=== PATIENT | female | born 1950 | race Caucasian/White ===

== ENCOUNTER → 2017-12-16 10:35 | Outpatient (CLI) | payer MEDICARE, OTHER, SELFPAY ==
[2017-12-16 11:12] LABS: Chloride 101 mmol/L (98-107); HEMOLYSIS < 15 (0-50); Potassium 4.4 mmol/L (3.4-5.1); Sodium 142 mmol/L (137-145)
[2017-12-16 11:38] LABS: BUN Creatinine Ratio 23.3 (6-22); Blood Urea Nitrogen 14 mg/dL (7-17); Calcium 9.5 mg/dL (8.4-10.2); Carbon Dioxide 29 mmol/L (22-32); Cholesterol 117 mg/dL (140-199); Estimated Glomerular Filt Rate > 60.0 mL/min (>60); Glucose 98 mg/dL (80-110); HDL Cholesterol 37 mg/dL (40-60); LDL Cholesterol Calculated 59 mg/dL (<100); Triglycerides 106 mg/dL (35-150)
== END ==
PROVIDERS: PCP Physician Assistant; Visit Provider Internal Medicine Interventional Cardiology
DX: I25.10 Atherosclerotic heart disease of native coronary artery without angina pectoris (principal)
CPT/HCPCS: 36415; 80048; 80061

== ENCOUNTER → 2018-05-13 14:00 | Outpatient (CLI) | payer MEDICARE, OTHER, SELFPAY | PROVIDERS: PCP Physician Assistant | DX: Z23 Encounter for immunization (principal) | CPT/HCPCS: 90471; 90686 ==

== ENCOUNTER 2018-09-01 07:33 | Day surgery (SDC) | payer MEDICARE, OTHER, SELFPAY ==
--- NOTE | 2018-09-01 | PATH.2_ITS ---
[facility] Accession Number: [id number] . 01 Material submitted: . PART A: POLYP CECUM PART B: POLYP ASCENDING COLON PART C: POLYPS AT 50CM X2 PART D: POLYPS AT 30CM X5 PART E: POLYPS AT 10CM X3 . 02 Diagnosis: A. Cecum, Polyp, Biopsy: Benign lymphoid aggregate. Additional levels were examined. . B. Ascending Colon, Polyp, Biopsy: Tubular adenoma. . C. Colon, Polyps at 50 cm x2, Biopsies: Tubular adenoma in two of four fragments. . D. Colon, Polyps at 30 cm x5, Biopsies: Hyperplastic polyps. . E. Colon, Polyps at 10 cm x3, Biopsies: Hyperplastic polyps. [facility]/09/05/2018 . 02 Electronically signed: . Vangie Rivera MD, Pathologist NPI- [id number] . 01 Gross description: . Received five formalin-filled containers, each labeled with the patient's name: . A. In a container labeled polyp cecum, are two 0.3-0.6 cm portions of tissue, entirely submitted in cassette A. B. In a container labeled polyp ascending colon, are multiple fragments of tissue which range in size from 0.1 cm to 0.3 cm, entirely submitted in cassette B. C. In a container labeled polyp at 50 cm x2, are two 0.3-0.5 cm portions of tissue, entirely submitted in cassette C. D. In a container labeled polyp at 30 cm x5, are multiple less than 0.1 cm to 0.4 cm portions of tissue, which are filtered, wrapped, and entirely submitted in cassette D. E. In a container labeled polyps at 10 cm x3, are four 0.2-0.4 cm portions of tissue, entirely submitted in cassette E. ([id number]) /FRR . 02 Pathologist provided ICD-10: D12.2, D12.6 . 02 CPT . 038443, [id number], 364814, [id number], [id number] Performed at: 01 [facility] [address] [id number] MD aJni Cifuentes MD Phone: [phone] Performed at: 02 [facility] [address] [place] [address] [id number] MD Vangie Rivera MD Phone: [phone]
[2018-09-01 08:03] VITALS: BMI 33.0
[2018-09-01 08:09] VITALS: BP 132/66; PULSE 54; RESP 16; TEMP 36.3; O2SAT 97
[2018-09-01] MEDS: SODIUM CHLORIDE 0.9% 1,000 ML 200 ML IV (08:21)
--- NOTE | 2018-09-01 09:37 | PM.HP.1 ---
History of Present Illness Date Patient Seen: 09/01/18 Time Patient Seen: 09:37 Chief complaint: [id number] SCREENING COLONOSCOPY Narrative: Patient is woman here for a screening colonoscopy. Her last exam was over 10 years ago. She is not having any rectal bleeding and she has no family history of colon cancer Patient History Medical History S/P right hip fracture (Resolved) Surgical History H/O heart artery stent (Resolved) History of (Resolved) History of bilateral cataract extraction (Resolved) Hx of appendectomy (Resolved) Previous back surgery (Resolved) Social History household members: significant other Family & Social History Social History: household members significant other Meds Home Medications Medication Instructions Recorded Confirmed Type nitroglycerin 0.4 mg SUBLINGUAL Q5-15M #0 09/12/09 09/01/18 History atenolol 25 mg PO HS #0 08/07/11 09/01/18 History celecoxib [Celebrex] 200 mg PO PM #0 08/07/11 09/01/18 History atorvastatin [Lipitor] 20 mg PO HS #0 10/27/11 09/01/18 History amlodipine 10 mg PO DAILY 09/01/18 09/01/18 History cholecalciferol (vitamin D3) 2,500 unit PO DAILY 09/01/18 09/01/18 History [Vitamin D3] lorazepam 1 mg PO BEDTIME 09/01/18 09/01/18 History oxycodone 5 - 10 mg PO Q3HP PRN 09/01/18 09/01/18 History Allergies Allergy/AdvReac Type Severity Reaction Status Date / Time ALISTAIR Inhibitors Allergy Severe ANGIOEDEMA Verified 09/01/18 07:57 [ALISTAIR INHIBITORS] lisinopril [LISINOPRIL] Allergy Severe ANGIOEDEMA Verified 09/01/18 07:57 latex [LATEX] Allergy Mild less Verified 09/01/18 07:57 irritation from non-latex on mucus membranes Review of Systems Review of Systems No chest pain since her stents no black or bloody bowel movements no seizures blackouts no breathing issues. She does take medication including atenolol for heart/hypertension and took it last night as she usually does Exam Vital Signs (past 8 hours): - 09/01/18 08:09 Temperature 97.3 F L Pulse Rate 54 L Respiratory Rate 16 Blood Pressure 132/66 Pulse Oximetry 97 Oxygen Delivery Method Room Air Narrative Exam Narrative: Co Operative no apparent distress. Eyes are nonicteric. Lungs are clear to auscultation no rales or rhonchi. Heart regular rate and rhythm without murmur gallop. Abdomen is soft nontender without mass. Patient is alert and oriented x3 Assessment & Plan Assessment & Plan narrative: Patient for screening colonoscopy. I have discussed the procedure and the rationale with the patient including risks of bleeding, perforation which would necessitate a major operation, failure to find remove all lesions and the potential to tattoo. They appeared to understand and wished to proceed.
--- NOTE | 2018-09-01 09:43 | PM.PREOP ---
Pre-operative Note Interval Note History & Physical reviewed/Exam performed by Physician: Yes Changes to H&P: No ASA Class (for procedural sedation): III
--- NOTE | 2018-09-01 09:51 | SUR.OPER ---
GLASSES TO PACU WITH PATIENT
[2018-09-01] MEDS: MIDAZOLAM 5 MG/5 ML VIAL IV (09:57)
[2018-09-01] MEDS: fentaNYL 250 MCG/5 ML INJ IV (09:58)
--- NOTE | 2018-09-01 10:33 | PM.OP.ENDO ---
Operative Date/Time/Diagnoses Date of procedure: 09/01/18 Time of procedure: 10:33 Pre-op diagnosis: Screening examination. Last exam over 10 years ago. Post-op diagnosis: other (Multiple polyps. Occasional sigmoid diverticulosis) Procedure & Clinicians Study performed: Colonoscopy with cold biopsy Same procedure as scheduled: Yes Indications: Screening Surgeon: Sheldon Nguyen Procedure Notes SCOAP/Timeout: Performed Procedure in detail: The patient was placed in the left lateral decubitus position and underwent IV sedation directed by the surgeon consisting of fentanyl and Versed. Digital exam was unremarkable except for a little narrowing. I placed some topical lidocaine gel on the area. The scope was inserted and advanced through the rectum into the sigmoid, descending, transverse, and ascending colon. Stiffener had to be inserted and pressure applied in order to reach the cecum. I noted some small polyps in the rectum which I plan to remove as I egressed. I also noted a few sigmoid diverticuli. The cecum was reached identified by the ileocecal valve and the appendiceal opening. There was a small polyp in the cecum which I biopsied complete removal. The scope was gradually brought out. Polyps were also found at the ascending colon, 2 at 50 cm, 5 at 30 cm, and another 3 or 4 at 10 cm. All of these were quite small and some may not be neoplastic. The scope ultimately was retroflexed in the rectum. The appearance was notable for some scarring on old hemorrhoidal disease. No active ulcerations seen.. The scope was removed and the patient tolerated the procedure well. Prep was good Scope withdrawal time: 20.5 min Sedation minutes: 45 Findings: diverticulosis (Sigmoid. Occasional.), internal hemorrhoids (Minor and principally at the anal verge) and polyp (Numerous polypoid lesions. All small.) Specimen(s): other (Polyps) Complications: none Recommendations: Colonscopy in 5 years (If the majority of the polyps are removed our neoplastic she should have this repeated in 1 year) Follow up: as needed Disposition: PACU
[2018-09-01 10:35] VITALS: BP 137/66; PULSE 64; RESP 18; TEMP 36.2; O2SAT 94
[2018-09-01 10:40] VITALS: BP 137/61; PULSE 62; RESP 20; O2SAT 94
[2018-09-01 10:43] VITALS: BP 133/65; PULSE 61; RESP 16; TEMP 36.6; O2SAT 94
[2018-09-01 11:05] VITALS: BP 130/69; PULSE 57; RESP 15; TEMP 36.2; O2SAT 95
== END 2018-09-01 11:15 ==
LOC: ENDO 07:35
PROVIDERS: PCP Physician Assistant; Visit Provider Specialist
PROC: 0DJD8ZZ Inspection of Lower Intestinal Tract, Via Natural or Artificial Opening Endoscopic (ICD-10-PCS; CPT 45378; principal; 2018-09-01 08:45)
DX: Z12.11 Encounter for screening for malignant neoplasm of colon (principal); K57.30 Diverticulosis of large intestine without perforation or abscess without bleeding; K64.8 Other hemorrhoids; D12.2 Benign neoplasm of ascending colon; D12.6 Benign neoplasm of colon, unspecified
CPT/HCPCS: 45380; 88305; 99152; 99153; J2250; J3010

== ENCOUNTER 2018-09-25 08:49 | Emergency (ER) | payer MEDICARE, OTHER, SELFPAY ==
[2018-09-25 09:00] VITALS: BP 148/67; PULSE 59; RESP 20; TEMP 36.9; O2SAT 98; BMI 34.3
--- NOTE | 2018-09-25 09:23 | ED.BACK ---
HPI - Back Pain/Injury General Chief Complaint: Back Pain/Injury Stated Complaint: BACK PAIN Time Seen by Provider: 09/25/18 08:54 Source: patient and family Mode of arrival: ambulatory Limitations: no limitations History of Present Illness HPI Narrative: 68-year-old female former smoker with history of hypertension and prior back surgery presents with the chief complaint severe right flank pain with radiation around to her groin. She states that largely the symptoms are made worse by motion and improvement with rest but there are times when there is no provocation or palliation. She states this is different than the pain which was associated with her prior back surgeries which included radiation of pain down her leg. She denies any vomiting but has been nauseated. She denies any chest pain or shortness of breath. She denies any numbness, tingling or weakness. She denies any dysuria, frequency or urgency. Related Data Home Medications Medication Instructions Recorded Confirmed nitroglycerin 0.4 mg SUBLINGUAL Q5-15M #0 09/12/09 09/01/18 atenolol 25 mg PO BEDTIME #0 08/07/11 09/25/18 celecoxib [Celebrex] 200 mg PO PM #0 08/07/11 09/25/18 amlodipine 10 mg PO DAILY 09/01/18 09/25/18 lorazepam 1 - 2 mg PO BEDTIME PRN 09/01/18 09/25/18 oxycodone 5 mg PO 1-2XD PRN 09/01/18 09/25/18 aspirin 81 mg PO DAILY 09/25/18 09/25/18 atorvastatin 20 mg PO BEDTIME 09/25/18 09/25/18 bupropion HCl (smoking deter) 150 mg PO DAILY 09/25/18 09/25/18 cholecalciferol (vitamin D3) 5,000 unit PO DAILY 09/25/18 09/25/18 [Vitamin D3] lidocaine 1 patch TOPICAL DAILY 09/25/18 09/25/18 Previous Rx's Medication Instructions Recorded ketorolac 10 mg PO Q6H PRN #14 tab 09/25/18 ondansetron 4 mg PO TID-QID PRN #10 tab 09/25/18 oxycodone 5 mg PO Q4-6H PRN #20 tab 09/25/18 tamsulosin [Flomax] 0.4 mg PO DAILY #10 cap 09/25/18 Allergies Allergy/AdvReac Type Severity Reaction Status Date / Time ALISTAIR Inhibitors Allergy Severe ANGIOEDEMA Verified 09/25/18 09:23 [ALISTAIR INHIBITORS] lisinopril [LISINOPRIL] Allergy Severe ANGIOEDEMA Verified 09/25/18 09:23 latex [LATEX] Allergy Mild less Verified 09/25/18 09:23 irritation from non-latex on mucus membranes Review of Systems Constitutional Denies chills, Denies fever(s), Denies lethargy and Denies weakness Eyes Denies change in vision, Denies eye discharge, Denies irritation and Denies loss of vision ENT Ears, Nose, Mouth, and Throat: Denies change in voice, Denies neck pain and Denies sore throat Cardiovascular Denies chest pain, Denies irregular heart rhythm, Denies lightheadedness, Denies palpitations, Denies dyspnea, Denies dyspnea on exertion and Denies orthopnea Respiratory Denies cough, Denies dyspnea, Denies dyspnea on exertion and Denies wheezing Gastrointestinal Gastrointestinal: Denies abdominal pain, Denies change in bowel habits, Denies diarrhea, Denies nausea and Denies vomiting Genitourinary Denies hematuria, Reports flank pain, Denies urinary incontinence and Denies urinary urgency Musculoskeletal Reports back pain and Denies neck pain Integumentary/Breasts Denies pruritus, Denies erythema, Denies rash and Denies wounds Neurologic Denies confusion, Denies loss of vision and Denies weakness Psychiatric Denies anxiety, Denies confusion, Denies depression, Denies homicidal ideation and Denies suicidal ideation Endocrine Denies palpitations Hematologic/Lymphatic Denies easy bruising Allergic/Immunologic Denies wheezing PFSH Medical History S/P right hip fracture (Resolved) Surgical History H/O heart artery stent (Resolved) History of (Resolved) History of bilateral cataract extraction (Resolved) Hx of appendectomy (Resolved) Previous back surgery (Resolved) Social History household members: significant other Smoking Status: Current every day smoker Social History household members: significant other Smoking Status: Current every day smoker Exam Narrative Exam Narrative: GENERAL: 68-year-old female appears stated age, obviously quite uncomfortable, complaining of back and flank pain HEAD: Atraumatic. Normocephalic. No temporal or scalp tenderness. EYES: Pupils equal round and reactive. Extraocular motions intact. No scleral icterus. No injection or drainage. ENT: Nose without bleeding, purulent drainage or septal hematoma. Throat without erythema, tonsillar hypertrophy or exudate. Uvula midline. Airway patent. NECK: Trachea midline. No JVD or lymphadenopathy. Supple, nontender, no meningeal signs. CARDIOVASCULAR: Regular rate and rhythm without murmurs, gallops, or rubs. RESPIRATORY: Clear to auscultation. Breath sounds equal bilaterally. No wheezes, rales, or rhonchi. GASTROINTESTINAL: Abdomen soft, non-tender, nondistended. No hepato-splenomegaly, or palpable masses. No guarding. EXTREMITIES: No clubbing, cyanosis, or edema. No joint tenderness, effusion, or edema noted. BACK: Nontender without deformity or crepitance. No flank tenderness. no saddle anesthesia. No numbness or tingling NEURO: AOx3. SKIN: No rash or erythema. Initial Vital Signs Initial Vital Signs: Vital Signs Temperature 98.4 F 09/25/18 09:00 Pulse Rate 59 L 09/25/18 09:00 Respiratory Rate 20 09/25/18 09:00 Blood Pressure 148/67 H 09/25/18 09:00 Pulse Oximetry 98 09/25/18 09:00 Course Orders Ordered: Discontinued Medications Hydromorphone HCl (Dilaudid) 0.5 mg IV NOW ONE Stop: 09/25/18 10:59 Last Admin: 09/25/18 11:17 Dose: 0.5 mg Ketorolac Tromethamine (Toradol) 15 mg IV NOW ONE Stop: 09/25/18 09:35 Last Admin: 09/25/18 09:49 Dose: 15 mg Vital Signs - 8 hr 09/25/18 09:00 Temperature 98.4 F Pulse Rate 59 L Respiratory Rate 20 Blood Pressure 148/67 H Pulse Oximetry 98 MDM - Back Pain/Injury Differential Diagnosis Differential diagnosis: Likely lumbar radiculopathy, sciatica, strain of lumbar region, renal colic, pyelonephritis, thoracic back pain, AAA and discitis Medical Records Attestation: I reviewed the patient's medical records. Lab Data Attestation: I reviewed the patient's lab results. Result diagrams: 09/25/18 09:45 09/25/18 10:15 Lab Results 09/25/18 09/25/18 Range/Units 09:45 10:15 WBC 9.7 (4.5-11.0) X10^3/uL RBC 4.71 (4.0-5.2) X10^6/uL Hgb 14.6 (12.0-16.0) g/dL Hct 43.8 (36-46) % MCV 92.9 (80-100) fL MCH 31.0 (26-34) PG MCHC 33.4 (30-36) % RDW 13.0 (11.6-14.8) % Plt Count 202 (150-400) X10^3/uL Neut % (Auto) 68.9 (50-75) % Lymph % (Auto) 20.1 L (25-40) % Tompkins % (Auto) 8.1 (3-14) % Eos % (Auto) 2.0 (2-4) % Baso % (Auto) 0.9 (0-2) % Neut # (Auto) 6700 (5449-6453) /uL Lymph # (Auto) 1900 (3701-8919) /uL Tompkins # (Auto) 800 (0-900) /uL Eos # (Auto) 200 (0-450) /uL Baso # (Auto) 100 (0-100) /uL Sodium 139 (137-145) mmol/L Potassium 4.3 (3.4-5.1) mmol/L Chloride 102 (98-107) mmol/L Carbon Dioxide 29 (22-32) mmol/L BUN 13 (7-17) mg/dL Creatinine 0.70 (0.52-1.04) mg/dL Estimated GFR > 60.0 (>60) mL/min BUN/Creatinine Ratio 18.6 (6-22) Glucose 98 (80-110) mg/dL Calcium 8.9 (8.4-10.2) mg/dL Urine Dip Bedside Urine Glucose Negative Bedside Urine Bilirubin - Negative Bedside Urine Ketone - Negative Urine Specific [place] 1.025 Bedside Urine Occult Blood - Negative Bedside Urine pH 6.0 Bedside Urine Protein - Negative Bedside Urine Urobilinogen - Negative Bedside Urine Nitrite - Negative Bedside Urine Leukocytes - Negative Esterase Imaging Data CT scan - abdomen: Radiologist's impression: [address] [address] [address] Scan Report Signed Patient: Sheridan Oconnor HMR#: [id number] : 1Acct:[id number] Age/Sex: 68 / FDate of Service: 09/25/18 Loc: ED Accession Number: [id number] Procedure: CT kidney ureter bladder (KUB) Ordering Provider: Ramos Villa D.O. PROCEDURE: CT KIDNEY URETER BLADDER (KUB) INDICATIONS: severe Right flank pain with radiation TECHNIQUE: Noncontrast 5 mm thick sections acquired from the diaphragms to the symphysis. 5 mm thick coronal and sagittal reformats were then performed. For radiation dose reduction, the following was used: automated exposure control, adjustment of mA and/or kV according to patient size. COMPARISON: [facility], CT, IVP (ABD & PEL WWO CONTRAST), 03/07/2015, 8:41. FINDINGS: Image quality: Excellent. Lung bases: Lung bases are clear. Heart size is normal. Coronary artery calcifications are present. Urinary system: Both kidneys are normal in size. A pair of 1-2 mm right renal calculi. Redemonstration of prominent right renal pelvis which is unchanged since 2015 presumably from UPJ stenosis. No perinephric fat stranding. Both ureters appear non-dilated throughout their expected courses. However, the distal ureters are not well-seen due to streak artifact from right hip arthroplasty, and pelvic surgical clips. Bladder wall thickness is grossly normal; no calcified bladder stones. Other solid organs: Liver is normal in size. Scattered subcentimeter hepatic hypodensities are too small to characterize definitively although some of these appear unchanged since the prior study. Gallbladder unremarkable. Pancreas is normal in contours. Spleen is normal in size. No adrenal nodules. Peritoneum and bowel: Unenhanced bowel loops demonstrate normal wall thickness and caliber. No free fluid or air. Appendix is not clearly identified however no suspicious pericecal inflammatory changes are identified Nodes and vessels: No retroperitoneal or mesenteric adenopathy by size criteria. Aorta and inferior vena cava are normal in caliber. Abdominal wall: No ventral hernias. Pelvis: No free pelvic fluid. No inguinal hernias or adenopathy. Bones: No suspicious bony lesions. Diffuse osteopenia. Lumbar spinal instrumentation. Multilevel spondylosis and facet arthropathy. No vertebral body compression fractures. IMPRESSION: A pair of nonobstructive right renal calculi measuring 1-2 mm. Right pelviectasis again noted and grossly unchanged since 2015 presumably reflected to UPJ stenosis. Suboptimal evaluation in particular of the distal ureters due to streak artifact right hip arthroplasty. Dictated by: Kin Guadarrama M.D. on 09/25/2018 at 10:14 Approved by: Kin Guadarrama M.D. on 09/25/2018 at 10:24 [facility] Narrative Medical decision making narrative: 68-year-old female with history of cardiac disease and prior back problems presents with atypical symptoms for her. Her pain is in right flank and wraps around her abdomen. Her urine shows no blood and a CT KUB shows stones in her kidney but down in the ureters. passed or missed Kidney stone and renal colic are thought the most likely diagnoses given the above stated findings. other diagnoses such as AAA, dissection considered but thought less likely. Extensive return precautions given to the patient and her . The patient and her have had their questions answered to their apparent satisfaction Discharge Plan Departure Patient Disposition: Home Clinical Impression: Acute flank pain Discharge Date/Time: 09/25/18 13:16 Interventions: ED Discharge Assessment Last Done: 09/25/18 13:15 Instructions: DI for Flank Pain Activity Restrictions/Additional Instructions: *You have been diagnosed with [ acute Right Flank Pain ] *What to do: *Take medications as directed: Your prescriptions have been electronically transmitted to [facility] at your request with the exception of the opioid pain medication which must be printed *Follow up with your primary care provider in 2-3 days, call for an appointment. Let them know you were seen in the Emergency Department and that we ask that you be seen in follow up *Return to ER if you should have any new, worsening or concerning symptoms Prescriptions: New ketorolac 10 mg tablet 10 mg PO Q6H PRN (Reason: pain) Qty: 14 RF: 0 tamsulosin [Flomax] 0.4 mg capsule 0.4 mg PO DAILY Qty: 10 RF: 0 ondansetron 4 mg tablet,disintegrating 4 mg PO TID-QID PRN (Reason: nausea and vomiting) Qty: 10 RF: 0 oxycodone 5 mg tablet 5 mg PO Q4-6H PRN (Reason: pain) Qty: 20 RF: 0 No Action nitroglycerin 0.4 mg Tablet, Sublingual 0.4 mg SUBLINGUAL Q5-15M Qty: 0 RF: 0 atenolol 25 MG tablet 25 mg PO BEDTIME Qty: 0 RF: 0 celecoxib [Celebrex] 200 MG capsule 200 mg PO PM Qty: 0 RF: 0 amlodipine 10 mg tablet 10 mg PO DAILY RF: 0 lorazepam 1 mg tablet 1 - 2 mg PO BEDTIME PRN (Reason: SLEEP, RLS, MUSCLE SPASM) RF: 0 oxycodone 5 MG tablet 5 mg PO 1-2XD PRN (Reason: PAIN) RF: 0 atorvastatin 20 mg tablet 20 mg PO BEDTIME RF: 0 aspirin 81 mg Tablet,Delayed Release (Dr/Ec) 81 mg PO DAILY RF: 0 lidocaine 5 % Adhesive Patch,Medicated 1 patch TOPICAL DAILY RF: 0 cholecalciferol (vitamin D3) [Vitamin D3] 5,000 unit Tablet 5,000 unit PO DAILY RF: 0 bupropion HCl (smoking deter) 150 mg Tablet Extended Release 12 Hr 150 mg PO DAILY RF: 0 Referrals: Amanda Dickey PA-C [Primary Care Provider] -
--- NOTE | 2018-09-25 09:40 | DI.CT.S_ITS ---
PROCEDURE: CT KIDNEY URETER BLADDER (KUB) INDICATIONS: severe Right flank pain with radiation TECHNIQUE: Noncontrast 5 mm thick sections acquired from the diaphragms to the symphysis. 5 mm thick coronal and sagittal reformats were then performed. For radiation dose reduction, the following was used: automated exposure control, adjustment of mA and/or kV according to patient size. COMPARISON: [facility], CT, IVP (ABD & PEL WWO CONTRAST), 03/07/2015, 8:41. FINDINGS: Image quality: Excellent. Lung bases: Lung bases are clear. Heart size is normal. Coronary artery calcifications are present. Urinary system: Both kidneys are normal in size. A pair of 1-2 mm right renal calculi. Redemonstration of prominent right renal pelvis which is unchanged since 2014 presumably from UPJ stenosis. No perinephric fat stranding. Both ureters appear non-dilated throughout their expected courses. However, the distal ureters are not well-seen due to streak artifact from right hip arthroplasty, and pelvic surgical clips. Bladder wall thickness is grossly normal; no calcified bladder stones. Other solid organs: Liver is normal in size. Scattered subcentimeter hepatic hypodensities are too small to characterize definitively although some of these appear unchanged since the prior study. Gallbladder unremarkable. Pancreas is normal in contours. Spleen is normal in size. No adrenal nodules. Peritoneum and bowel: Unenhanced bowel loops demonstrate normal wall thickness and caliber. No free fluid or air. Appendix is not clearly identified however no suspicious pericecal inflammatory changes are identified Nodes and vessels: No retroperitoneal or mesenteric adenopathy by size criteria. Aorta and inferior vena cava are normal in caliber. Abdominal wall: No ventral hernias. Pelvis: No free pelvic fluid. No inguinal hernias or adenopathy. Bones: No suspicious bony lesions. Diffuse osteopenia. Lumbar spinal instrumentation. Multilevel spondylosis and facet arthropathy. No vertebral body compression fractures. IMPRESSION: A pair of nonobstructive right renal calculi measuring 1-2 mm. Right pelviectasis again noted and grossly unchanged since 2014 presumably reflected to UPJ stenosis. Suboptimal evaluation in particular of the distal ureters due to streak artifact right hip arthroplasty. Dictated by: Kin Guadarrama M.D. on 09/25/2018 at 10:14 Approved by: Kin Guadarrama M.D. on 09/25/2018 at 10:24
[2018-09-25] MEDS: KETOROLAC 60 MG/2 ML VIAL 15 MG IV (09:49)
[2018-09-25 09:56] LABS: Add Manual Diff / Slide Review NO; Basophils Absolute Auto 100 /uL (0-100); Basophils Percent Auto 0.9 % (0-2); Eosinophils Absolute Auto 200 /uL (0-450); Hematocrit 43.8 % (36-46); Hemoglobin 14.6 g/dL (12.0-16.0); Lymphocytes Absolute Auto 1900 /uL (1100-4500); Lymphocytes Percent Auto 20.1 % (25-40); Mean Corpuscular HGB Conc 33.4 % (30-36); Mean Corpuscular Volume 92.9 fL (80-100); Monocytes Absolute Auto 800 /uL (0-900); Monocytes Percent Auto 8.1 % (3-14); Neutrophils Absolute Auto 6700 /uL (1500-7000); Neutrophils Percent Auto 68.9 % (50-75); Platelet Count 202 X10^3/uL (150-400); Red Blood Cell Count 4.71 X10^6/uL (4.0-5.2); White Blood Cell Count 9.7 X10^3/uL (4.5-11.0)
--- NOTE | 2018-09-25 10:04 | ED_ITS ---
HPI - Back Pain/Injury General Chief Complaint: Back Pain/Injury Stated Complaint: BACK PAIN Time Seen by Provider: 09/25/18 08:54 Source: patient and family Mode of arrival: ambulatory Limitations: no limitations History of Present Illness HPI Narrative: 68-year-old female former smoker with history of hypertension and prior back surgery presents with the chief complaint severe right flank pain with radiation around to her groin. She states that largely the symptoms are made worse by motion and improvement with rest but there are times when there is no provocation or palliation. She states this is different than the pain which was associated with her prior back surgeries which included radiation of pain down her leg. She denies any vomiting but has been nauseated. She denies any chest pain or shortness of breath. She denies any numbness, tingling or weakness. She denies any dysuria, frequency or urgency. Related Data Home Medications Medication Instructions Recorded Confirmed nitroglycerin 0.4 mg SUBLINGUAL Q5-15M #0 09/12/09 09/01/18 atenolol 25 mg PO BEDTIME #0 08/07/11 09/25/18 celecoxib [Celebrex] 200 mg PO PM #0 08/07/11 09/25/18 amlodipine 10 mg PO DAILY 09/01/18 09/25/18 lorazepam 1 - 2 mg PO BEDTIME PRN 09/01/18 09/25/18 oxycodone 5 mg PO 1-2XD PRN 09/01/18 09/25/18 aspirin 81 mg PO DAILY 09/25/18 09/25/18 atorvastatin 20 mg PO BEDTIME 09/25/18 09/25/18 bupropion HCl (smoking deter) 150 mg PO DAILY 09/25/18 09/25/18 cholecalciferol (vitamin D3) 5,000 unit PO DAILY 09/25/18 09/25/18 [Vitamin D3] lidocaine 1 patch TOPICAL DAILY 09/25/18 09/25/18 Previous Rx's Medication Instructions Recorded ketorolac 10 mg PO Q6H PRN #14 tab 09/25/18 ondansetron 4 mg PO TID-QID PRN #10 tab 09/25/18 oxycodone 5 mg PO Q4-6H PRN #20 tab 09/25/18 tamsulosin [Flomax] 0.4 mg PO DAILY #10 cap 09/25/18 Allergies Allergy/AdvReac Type Severity Reaction Status Date / Time ALISTAIR Inhibitors Allergy Severe ANGIOEDEMA Verified 09/25/18 09:23 [ALISTAIR INHIBITORS] lisinopril [LISINOPRIL] Allergy Severe ANGIOEDEMA Verified 09/25/18 09:23 latex [LATEX] Allergy Mild less Verified 09/25/18 09:23 irritation from non-latex on mucus membranes Review of Systems Constitutional Denies chills, Denies fever(s), Denies lethargy and Denies weakness Eyes Denies change in vision, Denies eye discharge, Denies irritation and Denies loss of vision ENT Ears, Nose, Mouth, and Throat: Denies change in voice, Denies neck pain and Denies sore throat Cardiovascular Denies chest pain, Denies irregular heart rhythm, Denies lightheadedness, Denies palpitations, Denies dyspnea, Denies dyspnea on exertion and Denies orthopnea Respiratory Denies cough, Denies dyspnea, Denies dyspnea on exertion and Denies wheezing Gastrointestinal Gastrointestinal: Denies abdominal pain, Denies change in bowel habits, Denies diarrhea, Denies nausea and Denies vomiting Genitourinary Denies hematuria, Reports flank pain, Denies urinary incontinence and Denies urinary urgency Musculoskeletal Reports back pain and Denies neck pain Integumentary/Breasts Denies pruritus, Denies erythema, Denies rash and Denies wounds Neurologic Denies confusion, Denies loss of vision and Denies weakness Psychiatric Denies anxiety, Denies confusion, Denies depression, Denies homicidal ideation and Denies suicidal ideation Endocrine Denies palpitations Hematologic/Lymphatic Denies easy bruising Allergic/Immunologic Denies wheezing PFSH Medical History S/P right hip fracture (Resolved) Surgical History H/O heart artery stent (Resolved) History of (Resolved) History of bilateral cataract extraction (Resolved) Hx of appendectomy (Resolved) Previous back surgery (Resolved) Social History household members: significant other Smoking Status: Current every day smoker Social History household members: significant other Smoking Status: Current every day smoker Exam Narrative Exam Narrative: GENERAL: 68-year-old female appears stated age, obviously quite uncomfortable, complaining of back and flank pain HEAD: Atraumatic. Normocephalic. No temporal or scalp tenderness. EYES: Pupils equal round and reactive. Extraocular motions intact. No scleral icterus. No injection or drainage. ENT: Nose without bleeding, purulent drainage or septal hematoma. Throat without erythema, tonsillar hypertrophy or exudate. Uvula midline. Airway patent. NECK: Trachea midline. No JVD or lymphadenopathy. Supple, nontender, no meningeal signs. CARDIOVASCULAR: Regular rate and rhythm without murmurs, gallops, or rubs. RESPIRATORY: Clear to auscultation. Breath sounds equal bilaterally. No wheezes, rales, or rhonchi. GASTROINTESTINAL: Abdomen soft, non-tender, nondistended. No hepato- splenomegaly, or palpable masses. No guarding. EXTREMITIES: No clubbing, cyanosis, or edema. No joint tenderness, effusion, or edema noted. BACK: Nontender without deformity or crepitance. No flank tenderness. no saddle anesthesia. No numbness or tingling NEURO: AOx3. SKIN: No rash or erythema. Initial Vital Signs Initial Vital Signs: Vital Signs Temperature 98.4 F 09/25/18 09:00 Pulse Rate 59 L 09/25/18 09:00 Respiratory Rate 20 09/25/18 09:00 Blood Pressure 148/67 H 09/25/18 09:00 Pulse Oximetry 98 09/25/18 09:00 Course Orders Ordered: Discontinued Medications Hydromorphone HCl (Dilaudid) 0.5 mg IV NOW ONE Stop: 09/25/18 10:59 Last Admin: 09/25/18 11:17 Dose: 0.5 mg Ketorolac Tromethamine (Toradol) 15 mg IV NOW ONE Stop: 09/25/18 09:35 Last Admin: 09/25/18 09:49 Dose: 15 mg Vital Signs - 8 hr 09/25/18 09:00 Temperature 98.4 F Pulse Rate 59 L Respiratory Rate 20 Blood Pressure 148/67 H Pulse Oximetry 98 MDM - Back Pain/Injury Differential Diagnosis Differential diagnosis: Likely lumbar radiculopathy, sciatica, strain of lumbar region, renal colic, pyelonephritis, thoracic back pain, AAA and discitis Medical Records Attestation: I reviewed the patient's medical records. Lab Data Attestation: I reviewed the patient's lab results. Result diagrams: 09/25/18 09:45 09/25/18 10:15 Lab Results 09/25/18 09/25/18 Range/Units 09:45 10:15 WBC 9.7 (4.5-11.0) X10^3/uL RBC 4.71 (4.0-5.2) X10^6/uL Hgb 14.6 (12.0-16.0) g/dL Hct 43.8 (36-46) % MCV 92.9 (80-100) fL MCH 31.0 (26-34) PG MCHC 33.4 (30-36) % RDW 13.0 (11.6-14.8) % Plt Count 202 (150-400) X10^3/uL Neut % (Auto) 68.9 (50-75) % Lymph % (Auto) 20.1 L (25-40) % [place] % (Auto) 8.1 (3-14) % Eos % (Auto) 2.0 (2-4) % Baso % (Auto) 0.9 (0-2) % Neut # (Auto) 6700 (1154-8900) /uL Lymph # (Auto) 1900 (3500-7823) /uL [place] # (Auto) 800 (0-900) /uL Eos # (Auto) 200 (0-450) /uL Baso # (Auto) 100 (0-100) /uL Sodium 139 (137-145) mmol/L Potassium 4.3 (3.4-5.1) mmol/L Chloride 102 (98-107) mmol/L Carbon Dioxide 29 (22-32) mmol/L BUN 13 (7-17) mg/dL Creatinine 0.70 (0.52-1.04) mg/dL Estimated GFR > 60.0 (>60) mL/min BUN/Creatinine Ratio 18.6 (6-22) Glucose 98 (80-110) mg/dL Calcium 8.9 (8.4-10.2) mg/dL Urine Dip Bedside Urine Glucose Negative Bedside Urine Bilirubin - Negative Bedside Urine Ketone - Negative Urine Specific [place] 1.025 Bedside Urine Occult Blood - Negative Bedside Urine pH 6.0 Bedside Urine Protein - Negative Bedside Urine Urobilinogen - Negative Bedside Urine Nitrite - Negative Bedside Urine Leukocytes - Negative Esterase Imaging Data CT scan - abdomen: Radiologist's impression: [address] [address] [address] Scan Report Signed Patient: Sheridan Oconnor HMR#: [id number] : 1Acct:[id number] Age/Sex: 68 / FDate of Service: 09/25/18 Loc: ED Accession Number: [id number] Procedure: CT kidney ureter bladder (KUB) Ordering Provider: Ramos Villa D.O. PROCEDURE: CT KIDNEY URETER BLADDER (KUB) INDICATIONS: severe Right flank pain with radiation TECHNIQUE: Noncontrast 5 mm thick sections acquired from the diaphragms to the symphysis. 5 mm thick coronal and sagittal reformats were then performed. For radiation dose reduction, the following was used: automated exposure control, adjustment of mA and/or kV according to patient size. COMPARISON: [facility], CT, IVP (ABD & PEL WWO CONTRAST), 03/07/2015, 8:41. FINDINGS: Image quality: Excellent. Lung bases: Lung bases are clear. Heart size is normal. Coronary artery calcifications are present. Urinary system: Both kidneys are normal in size. A pair of 1-2 mm right renal calculi. Redemonstration of prominent right renal pelvis which is unchanged since 2015 presumably from UPJ stenosis. No perinephric fat stranding. Both ureters appear non-dilated throughout their expected courses. However, the distal ureters are not well-seen due to streak artifact from right hip arthroplasty, and pelvic surgical clips. Bladder wall thickness is grossly normal; no calcified bladder stones. Other solid organs: Liver is normal in size. Scattered subcentimeter hepatic hypodensities are too small to characterize definitively although some of these appear unchanged since the prior study. Gallbladder unremarkable. Pancreas is normal in contours. Spleen is normal in size. No adrenal nodules. Peritoneum and bowel: Unenhanced bowel loops demonstrate normal wall thickness and caliber. No free fluid or air. Appendix is not clearly identified however no suspicious pericecal inflammatory changes are identified Nodes and vessels: No retroperitoneal or mesenteric adenopathy by size criteria. Aorta and inferior vena cava are normal in caliber. Abdominal wall: No ventral hernias. Pelvis: No free pelvic fluid. No inguinal hernias or adenopathy. Bones: No suspicious bony lesions. Diffuse osteopenia. Lumbar spinal instrumentation. Multilevel spondylosis and facet arthropathy. No vertebral body compression fractures. IMPRESSION: A pair of nonobstructive right renal calculi measuring 1-2 mm. Right pelviectasis again noted and grossly unchanged since 2015 presumably reflected to UPJ stenosis. Suboptimal evaluation in particular of the distal ureters due to streak artifact right hip arthroplasty. Dictated by: Kin Guadarrama M.D. on 09/25/2018 at 10:14 Approved by: Kin Guadarrama M.D. on 09/25/2018 at 10:24 [facility] Narrative Medical decision making narrative: 68-year-old female with history of cardiac disease and prior back problems presents with atypical symptoms for her. Her pain is in right flank and wraps around her abdomen. Her urine shows no blood and a CT KUB shows stones in her kidney but down in the ureters. passed or missed Kidney stone and renal colic are thought the most likely diagnoses given the above stated findings. other diagnoses such as AAA, dissection considered but thought less likely. Extensive return precautions given to the patient and her . The patient and her have had their questions answered to their apparent satisfaction Discharge Plan Departure Patient Disposition: Home Clinical Impression: Acute flank pain Discharge Date/Time: 09/25/18 13:16 Interventions: ED Discharge Assessment Last Done: 09/25/18 13:15 Instructions: DI for Flank Pain Activity Restrictions/Additional Instructions: *You have been diagnosed with [ acute Right Flank Pain ] *What to do: *Take medications as directed: Your prescriptions have been electronically transmitted to [facility] at your request with the exception of the opioid pain medication which must be printed *Follow up with your primary care provider in 2-3 days, call for an appointment. Let them know you were seen in the Emergency Department and that we ask that you be seen in follow up *Return to ER if you should have any new, worsening or concerning symptoms Prescriptions: New ketorolac 10 mg tablet 10 mg PO Q6H PRN (Reason: pain) Qty: 14 RF: 0 tamsulosin [Flomax] 0.4 mg capsule 0.4 mg PO DAILY Qty: 10 RF: 0 ondansetron 4 mg tablet,disintegrating 4 mg PO TID-QID PRN (Reason: nausea and vomiting) Qty: 10 RF: 0 oxycodone 5 mg tablet 5 mg PO Q4-6H PRN (Reason: pain) Qty: 20 RF: 0 No Action nitroglycerin 0.4 mg Tablet, Sublingual 0.4 mg SUBLINGUAL Q5-15M Qty: 0 RF: 0 atenolol 25 MG tablet 25 mg PO BEDTIME Qty: 0 RF: 0 celecoxib [Celebrex] 200 MG capsule 200 mg PO PM Qty: 0 RF: 0 amlodipine 10 mg tablet 10 mg PO DAILY RF: 0 lorazepam 1 mg tablet 1 - 2 mg PO BEDTIME PRN (Reason: SLEEP, RLS, MUSCLE SPASM) RF: 0 oxycodone 5 MG tablet 5 mg PO 1-2XD PRN (Reason: PAIN) RF: 0 atorvastatin 20 mg tablet 20 mg PO BEDTIME RF: 0 aspirin 81 mg Tablet,Delayed Release (Dr/Ec) 81 mg PO DAILY RF: 0 lidocaine 5 % Adhesive Patch,Medicated 1 patch TOPICAL DAILY RF: 0 cholecalciferol (vitamin D3) [Vitamin D3] 5,000 unit Tablet 5,000 unit PO DAILY RF: 0 bupropion HCl (smoking deter) 150 mg Tablet Extended Release 12 Hr 150 mg PO DAILY RF: 0 Referrals: Amanda Dickey PA-C [Primary Care Provider] -
[2018-09-25 10:34] LABS: BUN Creatinine Ratio 18.6 (6-22); Blood Urea Nitrogen 13 mg/dL (7-17); Calcium 8.9 mg/dL (8.4-10.2); Carbon Dioxide 29 mmol/L (22-32); Chloride 102 mmol/L (98-107); Estimated Glomerular Filt Rate > 60.0 mL/min (>60); Glucose 98 mg/dL (80-110); HEMOLYSIS < 15 (0-50); Potassium 4.3 mmol/L (3.4-5.1); Sodium 139 mmol/L (137-145)
[2018-09-25] MEDS: HYDROMORPHONE 1 MG INJ 0.5 MG IV (11:17)
[2018-09-25 11:59] VITALS: BP 138/52; PULSE 54; RESP 17; O2SAT 94
[2018-09-25 13:15] VITALS: BP 121/52; PULSE 51; RESP 16; O2SAT 94
== END 2018-09-25 13:16 | disposition home or self-care (01) ==
PROVIDERS: Emergency Provider Emergency Medicine; PCP Physician Assistant
DX: R10.9 Unspecified abdominal pain (principal)
CPT/HCPCS: 36415; 36591; 74176; 80048; 81003; 85025; 96374; 96375; 99283; 99284; J1170; J1885

== ENCOUNTER → 2018-11-22 12:30 | Outpatient (CLI) | payer MEDICARE, OTHER, SELFPAY ==
--- NOTE | 2018-11-22 | DI.MG.S_ITS ---
BILATERAL DIGITAL SCREENING MAMMOGRAM 3D/2D WITH CAD: 11/22/2018 CLINICAL: Routine screening. Family history of breast cancer. Comparison is made to exams dated: 04/03/2013 mammogram, 03/13/2010 mammogram, and 01/23/2008 mammogram - [facility]. There are scattered fibroglandular elements in both breasts. Current study was also evaluated with a Computer Aided Detection (CAD) system. No significant masses, calcifications, or other findings are seen in either breast. There has been no significant interval change. IMPRESSION: NEGATIVE There is no mammographic evidence of malignancy. A 1 year screening mammogram is recommended. This exam was interpreted at Station ID: [id number]. NOTE: For mammograms, a report in lay terms will be sent to the patient. Approximately 15% of breast malignancies will not be visualized mammographically. In the management of a palpable breast mass, a negative mammogram must not discourage biopsy of a clinically suspicious lesion. Electronically Signed By: Mara pino/miri:11/22/2018 18:15:44 letter sent: Normal Exam ACR BI-RADS Category 1: Negative [id number]
== END ==
PROVIDERS: PCP Physician Assistant; Visit Provider Physician Assistant
DX: Z12.31 Encounter for screening mammogram for malignant neoplasm of breast (principal); Z80.3 Family history of malignant neoplasm of breast; M85.852 Other specified disorders of bone density and structure, left thigh; Z78.0 Asymptomatic menopausal state; F17.200 Nicotine dependence, unspecified, uncomplicated; Z82.62 Family history of osteoporosis
CPT/HCPCS: 77063; 77067; 77080

== ENCOUNTER → 2019-05-20 10:40 | Outpatient (CLI) | payer MEDICARE, OTHER, SELFPAY ==
--- NOTE | 2019-05-20 | DI.MRI.S_ITS ---
PROCEDURE: MR LUMBAR SPINE WO CON INDICATIONS: Other intervertebral disc degeneration, lumbar region TECHNIQUE: Noncontrast sagittal T1 spin echo and T2 fast echo, sagittal STIR, axial T1 and T2 fast spin echo through the lumbar spine. In cases with scoliosis, additional coronal T2 fast spin echo may be performed. COMPARISON: [facility], MR, MR LUMBAR SPINE WO CON, 07/20/2016, 9:25. [facility], MR, MR LUMBAR SPINE W&WO CON, 03/11/2015, 10:55. [facility], CR, SPINE LUMB 2 OR 3VW, 12/13/2016, 14:30. [facility], CT, CT KIDNEY URETER BLADDER (KUB), 09/25/2018, 10:02. [facility], MR, L-SPINE WITHOUT CONTRAST, 10/06/2011, 17:25. FINDINGS: Image quality: Excellent. Alignment and Curvature: Moderate levoconvex scoliotic curvature is noted. There is retrolisthesis seen at L1-L2, L2-L3, and L5-S1. Bone Marrow: Marrow is of normal overall signal. No acute vertebral body compression fractures. Spinal Cord: Conus medullaris terminates at the L1 level. Visualized cord demonstrates normal signal and size. Paraspinous Soft Tissues: No paravertebral masses. There is prominent dilatation of the right renal pelvis, which is similar to prior examinations. Mild prominence of the left can also be seen. Postoperative changes are seen, with left-sided pedicle screws at L2-L3 and right-sided pedicle screws L3-L5. Vertical fixation rods are seen. Disc spacers are seen at L2-L3, L3-L4 at L4-L5. There is associated susceptibility artifact. Age-appropriate lower thoracic spine degenerative changes are seen. T12-L1: Moderate loss of disc height and disc signal are seen. Bridging endplate osteophytes are seen. Moderate generalized disc bulge is seen. No significant neural foraminal or central canal narrowing can be seen. When comparison is made with the prior examination, these findings are similar. L1-L2: Moderate loss of disc height is seen. Loss of disc signal is seen. Bridging endplate osteophytes are seen. Reactive marrow endplate changes are seen, which demonstrate mixed T1 weighted and T2-weighted signal, and are attributed to a combination of edema and fatty metaplasia (Modic type I and Modic type II changes). At least moderate disc bulge is seen. Moderate bilateral neural foraminal narrowing is seen. Mild central canal narrowing is seen. These imaging findings have progressed compared to the prior study. L2-L3: Since the prior MRI, the left-sided hardware has been placed. Moderate generalized disc bulge is seen. Mild facet joint hypertrophy is seen. There is at least moderate bilateral neural foraminal narrowing seen. Moderate central canal narrowing is seen. The degree of neural foraminal narrowing appears slightly improved compared prior MRI. L3-L4: Moderate generalized disc bulge is seen. Moderate facet joint hypertrophy is seen. No significant neural foraminal narrowing is seen. Mild central canal narrowing is seen. Stable from the prior study. L4-L5: Moderate generalized disc bulge is seen. At least moderate facet hypertrophy is seen. [id number] bilateral neural foraminal narrowing is seen. Mild central canal narrowing is seen. When comparison is made with the prior examination, these findings are similar. L5-S1: At least moderate loss of disc height and disc signal can be seen. Moderate generalized disc bulge is seen. Moderate facet joint hypertrophy is seen. There is mild to moderate right-sided and moderate to severe left-sided neural foraminal narrowing seen. There is compression thickening left L5 nerve root. Mild central canal narrowing is seen. Stable from the prior study. IMPRESSION: Since the prior MRI, there has been placement of left-sided fixation hardware at the L2-L3 level, with improvement in the degree of neural foraminal narrowing at this level. Postoperative changes and prominent degenerative changes are seen elsewhere, which appear stable. Prominent stable dilatation of the right renal pelvis is again seen. Dictated by: Adriel Hunter M.D. on 05/21/2019 at 8:46 Approved by: Adriel Hunter M.D. on 05/21/2019 at 9:11
== END ==
PROVIDERS: PCP Internal Medicine; Visit Provider Internal Medicine
DX: M51.36 Other intervertebral disc degeneration, lumbar region (principal); M47.816 Spondylosis without myelopathy or radiculopathy, lumbar region; M47.817 Spondylosis without myelopathy or radiculopathy, lumbosacral region
CPT/HCPCS: 72148

== ENCOUNTER → 2019-05-21 14:32 | Outpatient (CLI) | payer MEDICARE, OTHER, SELFPAY ==
--- NOTE | 2019-05-21 | DI.US.S_ITS ---
PROCEDURE: US PELVIC COMPLETE INDICATIONS: BLOATING TECHNIQUE: Real-time scanning was performed of the pelvic organs, with image documentation. Additional endovaginal scanning was necessary due to incomplete visualization of the adnexal and endometrial structures by transabdominal scanning. COMPARISON: [facility], CT, CT KIDNEY URETER BLADDER (KUB), 09/25/2018, 10:02. FINDINGS: Transabdominal scanning: Limited scanning through the kidneys shows severe right hydronephrosis this patient with history of UPJ stenosis.. No pathologic free abdominal or pelvic fluid. Endovaginal scanning: Uterus: Uterus is normal in size at 5.9 x 2.7 x 4.8 cm. The endometrium measures 2.5 mm in combined thickness. Ovaries: Ovaries are normal bilaterally measuring 3.0 x 1.2 x 1.3 cm on the right and 2.9 x 1.7 0.4 cm in length. IMPRESSION: 1. No acute process seen within the pelvis. 2. Severe right hydronephrosis in patient with history of ureteropelvic stenosis. Dictated by: Gold BULLOCK Interpreted: Oskar Waterman MD on 05/21/2019 at 15:53 Approved by: Oskar Waterman M.D. on 05/22/2019 at 9:17
== END ==
PROVIDERS: Family Provider Internal Medicine; PCP Internal Medicine; Visit Provider Physician Assistant
DX: R14.0 Abdominal distension (gaseous) (principal); N13.1 Hydronephrosis with ureteral stricture, not elsewhere classified
CPT/HCPCS: 76830; 76856

== ENCOUNTER → 2019-06-14 10:36 | Outpatient (CLI) | payer MEDICARE, OTHER, SELFPAY ==
--- NOTE | 2019-06-14 | DI.CT.S_ITS ---
PROCEDURE: CT ABDOMEN PELVIS W CON INDICATIONS: Unspecified hydronephrosis TECHNIQUE: After the administration of oral and intravenous contrast, 5 mm thick sections acquired from the diaphragms to the symphysis. 5 mm thick coronal and sagittal reformats were performed. For radiation dose reduction, the following was used: automated exposure control, adjustment of mA and/or kV according to patient size. COMPARISON: [facility], CT, CT KIDNEY URETER BLADDER (KUB), 09/25/2018, 10:02. FINDINGS: Image quality: Excellent. ABDOMEN: Lung bases: Lung bases are clear. Heart size is normal. Solid organs: Liver is normal in size and enhancement. Subcentimeter hypodense foci are present within the liver suggesting the presence of small hepatic cysts or biliary hamartomas. These are unchanged from prior studies. Gallbladder is unremarkable. Biliary system is non-dilated. Pancreas enhances normally. Spleen is normal in size and enhancement. No adrenal nodules. There is severe right hydronephrosis and severe dilatation of the right renal pelvis. The right ureter is normal in course and caliber. There is mild prominence of a left extrarenal pelvis. No left hydronephrosis. The kidneys demonstrate symmetric size and enhancement. There is no delayed right nephrogram. There are multiple nonobstructing right renal calculi which measure 3 mm in diameter. The extent of right-sided hydronephrosis has increased when compared with the prior CT dated 09/25/18. Peritoneum and bowel: Stomach, small bowel, and colon loops are normal in caliber and wall thickness. No free fluid or air. Nodes and vessels: No retroperitoneal or mesenteric adenopathy. Aorta and inferior vena cava are normal in caliber. There are scattered atheromatous calcifications throughout the aorta and iliac arteries bilaterally. Miscellaneous: No ventral hernias. PELVIS: Genitourinary: Bladder wall thickness is normal. Miscellaneous: No inguinal hernias or adenopathy. Bones: No suspicious bony lesions. No vertebral body compression fractures. The right hip arthroplasty is grossly intact. Posterior fixation hardware is redemonstrated. Subtle lucency surrounds the left-sided L1 pedicle screw and the right-sided L2 pedicle screw. IMPRESSION: 1. Severe right hydronephrosis and renal pelvis dilatation with normal size right ureter consistent with UPJ obstruction. No delayed nephrogram to suggest decreased renal function at this time. 2. Nonobstructing right nephrolithiasis. 3. Lucency surrounding some of the lumbar pedicle screws which may be associated with hardware loosening. Dictated by: Toya Lozano M.D. on 06/14/2019 at 13:10 Approved by: Toya Lozano M.D. on 06/14/2019 at 14:37
== END ==
PROVIDERS: Family Provider Internal Medicine; PCP Internal Medicine; Visit Provider Internal Medicine
DX: N13.2 Hydronephrosis with renal and ureteral calculous obstruction (principal); Z96.641 Presence of right artificial hip joint
CPT/HCPCS: 74177; Q9967

== ENCOUNTER → 2019-07-05 08:03 | Outpatient (CLI) | payer MEDICARE, OTHER, SELFPAY ==
--- NOTE | 2019-07-05 | DI.ECHO.S_ITS ---
[facility]---------+ [facility] +---------+ : : [address] : : : : [id number] : : : : Phone: [phone] Echocardiogram Report + + :Name: LEWIS MONTIEL Study Date: 07/05/2019 Height: 63 in : :[facility] Weight: 198 lb : : Gender: Female BSA: 1.9 m2 : :: 1950 Age: 69 yrs BP: 138/74 mmHg: :Reason For Study: CAD : :Ordering Physician: Rehana Somers : :Nadeem Performed By: Wyatt Lerner : :Referring: REHANA BRADFORD : + + Interpretation Summary Left ventricular systolic function is normal. There is mild tricuspid regurgitation. The right ventricular systolic pressure is estimated to be at least 36 mmHg based on an estimated right atrial pressure of 8 mm Hg. Procedure: A two-dimensional transthoracic echocardiogram with color flow and Doppler was performed. The study quality was technically adequate. Prior echo performed on 02/05/15. The patient was in a bradycardic rhythm during the exam. Left Ventricle: The left ventricle is normal in size. There is mild concentric left ventricular hypertrophy. Left ventricular systolic function is normal. The ejection fraction is estimated to be 60-65%. Left ventricular wall motion is normal. Right Ventricle: The right ventricle is normal in size and function. Atria: The left atrium is mildly dilated. Right atrial size is normal. The interatrial septum is intact with no evidence for an atrial septal defect. Mitral Valve: The mitral valve leaflets appear mildly thickened, but open well. There is mild mitral annular calcification. There is trace mitral regurgitation. Aortic Valve: The aortic valve is not well visualized. The aortic valve opens well. No aortic regurgitation is present. Tricuspid Valve: The tricuspid valve is normal in structure and function. There is mild tricuspid regurgitation. The right ventricular systolic pressure is estimated to be at least 36 mmHg based on an estimated right atrial pressure of 8 mm Hg. Pulmonic Valve: The pulmonic valve is not well visualized. There is trace pulmonic regurgitation. Great Vessels: The aortic root is normal size. The ascending aorta could not be visualized. The pulmonary artery is normal size. The IVC is dilated (diameter is greater than 2.1 cm) yet it collapses greater than 50% with a sniff. This suggests a right atrial pressure of 8 mm Hg. Pericardium/ Pleura There is no pericardial effusion. There is no pleural effusion. MMode/2D Measurements & Calculations LVIDd: 4.6 cm LVOT diam: 2.0 cm LVIDs: 2.9 cm Ao root diam: 2.6 cm FS: 35.8 % EPSS: 0.53 cm IVSd: 1.2 cm LVPWd: 1.1 cm LV wilkinson. diameter/BSA (cm/m^2): 2.4 LV sys. diameter/BSA (cm/m^2): 1.5 LA A2 area: 20.4 cm2 RA long axis: 4.5 cm LA A4 area: 18.3 cm2 RA area: 14.2 cm2 LA length (vol): 4.8 cm RA vol: 38.3 ml LA vol: 66.1 ml RA : 19.9 ml/m2 LA vol index: 34.3 ml/m2 TAPSE: 1.9 cm Doppler Measurements & Calculations Ao V2 max: 155.7 cm/sec LVOT Max Shree: 118.4 cm/sec Ao V2 mean: 108.4 cm/sec LV V1 max P.6 mmHg Ao max P.7 mmHg LV V1 VTI: 29.9 cm Ao mean P.3 mmHg ARABELLA(I,D): 2.3 cm2 Ao V2 VTI: 38.4 cm ARABELLA(V,D): 2.3 cm2 sev ratio: 0.78 ARABELLA indexed to BSA (cm^2/m^2): 1.2 MV E max shree: 98.4 cm/sec TR max shree: 265.9 cm/sec MV A max shree: 50.0 cm/sec TR max P.3 mmHg MV E/A: 2.0 PA V2 max: 67.8 cm/sec Med Peak E' Shree: 6.1 cm/sec PA V2 mean: 46.9 cm/sec E/E' med: 16.2 PA mean P.98 mmHg Lat Peak E' Shree: 9.7 cm/sec PA Accel Time: 0.17 sec E/E' lat: 10.1 E/e' average: 13.2 MV dec time: 0.16 sec SV(LVOT): 90.1 ml [place] Physician:12:04 PM
== END ==
PROVIDERS: Family Provider Internal Medicine; PCP Internal Medicine; Visit Provider Internal Medicine Interventional Cardiology
DX: I07.1 Rheumatic tricuspid insufficiency (principal); I25.10 Atherosclerotic heart disease of native coronary artery without angina pectoris
CPT/HCPCS: 93306

== ENCOUNTER → 2019-08-02 09:19 | Outpatient (CLI) | payer MEDICARE, OTHER, SELFPAY ==
--- NOTE | 2019-08-02 | DI.NM.S_ITS ---
PROCEDURE: NM RENAL FUNCTION W LASIX RADIOPHARMACEUTICAL: 10.3 mCi Tc-99m MAG3 IV and 40 mg furosemide IV. INDICATIONS: Crossing vessel and stricture of ureter without hy TECHNIQUE: The patient was hydrated orally before the examination was begun. After intravenous administration of Tc-99m MAG3, posterior abdominal radionuclide angiogram and sequential (1 minute each frame) renal images were obtained. A time-activity curve for each kidney was generated and analyzed. To evaluate for obstruction, the patient was given 40 mg furosemide via slow intravenous injection after the start of the examination. Sequential images were obtained for up to an additional 20 minutes. COMPARISON: [facility], US, RENAL COMPLETE, 02/19/2015, 9:03. [facility], CT, CT KIDNEY URETER BLADDER (KUB), 09/25/2018, 10:02. [facility], US, US PELVIC COMPLETE, 05/21/2019, 14:51. [facility], CT, CT ABDOMEN PELVIS W CON, 06/14/2019, 12:21. FINDINGS: Perfusion: There is normal vascular flow to both kidneys. Morphology: Both kidneys are normal in size and shape. The right renal collecting system is dilated. No left renal collecting system dilation. The left ureter and bladder fill with tracer, and appear normal. The right ureter is not well-seen. Function: The left knee demonstrates normal cortical tracer uptake, with [id number]-tdig activity ranging at 5 minutes. There is mildly delayed and prolonged right renal cortical uptake. The right kidney contributes 40.7% of total renal function. The left kidney contributes 59.3% of total renal function. Lasix stimulation: After diuretic administration, there is prompt clearance of tracer activity from the left renal collecting system. The half-time of emptying of tracer activity from the right pelvicaliceal system is 14 minutes. The half-time of emptying from the left pelvicaliceal system is <10 minutes. Normal emptying half-times are less than 10 minutes; borderline ranges are from 10 to 20 minutes. IMPRESSION: 1. Dilated right renal collecting system. The calculated half-time of emptying (T1/2) of the right renal pelvicalyceal activity is 14 for the right kidney (borderline prolonged). 2. Normal left renal function without left renal obstruction. 3. The right kidney contributes 40.7% of total renal function; the left kidney contributes 59.3% of total renal function. Dictated by: Sandra Arcos M.D. on 08/02/2019 at 11:34 Approved by: Sandra Arcos M.D. on 08/02/2019 at 12:04
== END ==
PROVIDERS: Family Provider Internal Medicine; PCP Internal Medicine; Visit Provider Specialist
DX: N13.5 Crossing vessel and stricture of ureter without hydronephrosis (principal)
CPT/HCPCS: 78708; A9562

== ENCOUNTER 2019-08-31 08:42 | Day surgery (SDC) | payer MEDICARE, OTHER, SELFPAY ==
[2019-08-31] VITALS (7 sets, daily range): BP systolic 125–157; BP diastolic 49–78; PULSE 54–66; RESP 14–18; TEMP 36.1–36.4; O2SAT 93–97; BMI 35.0
--- NOTE | 2019-08-31 | DI.RAD.S_ITS ---
PROCEDURE: XR ABDOMEN 3V INDICATIONS: CYSTO TECHNIQUE: One view chest and two views of the abdomen were acquired. COMPARISON: [facility], CT, CT ABDOMEN PELVIS W CON, 06/14/2019, 12:21. FINDINGS: Surgical changes and devices: Posterior fusion abiodun on the right and left, 3 level on the right, 2 level on the left. This is in reference to prior CT scanning. Chest: Lungs are not included. Abdomen: Bowel gas pattern is normal where visualized. Retrograde urography is performed utilizing guidewire placement into the dilated collecting system of the right kidney, and subsequently a balloon catheter is placed along the guidewire within the right ureter to the level of stenosis, with apparent dilatation of the balloon tipped catheter. Subsequently the catheter was removed, the guidewire remains in place, and at the final image of the study a double pigtail right ureteral stent is placed with the upper pigtail within the dilated collecting system and the lower pigtail not included on the study. Bones: No suspicious bony lesions. IMPRESSION: Sequence of expected intervention procedures by urology, to include cannulation of the prominently chronically dilated right collecting system, balloon dilatation of the ureteropelvic junction, and final placement of a double pigtail catheter from the dilated collecting system inferiorly. Dictated by: Javier Gómez M.D. on 08/31/2019 at 16:10 Approved by: Javier Gómez M.D. on 08/31/2019 at 16:13
[2019-08-31] MEDS: LACTATED RINGERS 1,000 ML 42 ML IV (09:45)
--- NOTE | 2019-08-31 11:03 | PM.PREOP ---
Pre-operative Note Interval Note History & Physical reviewed/Exam performed by Physician: Yes Changes to H&P: No H&P completed within 30 days and has changed as indicated here:: There are no interval changes to the scanned history and physical examination.
[2019-08-31] MEDS: CEFAZOLIN 2 GM/100 ML FROZ.PIGGY IV (11:07)
--- NOTE | 2019-08-31 11:27 | SUR.OPER ---
Lithotomy on padded OR bed, head on pillow, arms secured on padded arm boards at <90 degrees abduction. Legs secured in padded yellow fins stirrups.
[2019-08-31] MEDS: IOPAMIDOL 15 ML VIAL INJ (11:36)
--- NOTE | 2019-08-31 12:06 | SUR.PHASEI ---
pt requested sitting on bedpan. pt attempting to void.
--- NOTE | 2019-08-31 12:08 | PM.OP.1 ---
Operative Date/Time/Diagnoses Date of procedure: 08/31/19 Time of procedure: 12:09 Pre-op diagnosis: 1. right UPJ obstruction. 2. pain Post-op diagnosis: same Procedure & Clinicians Procedure: 1. Cystoscopy and right retrograde pyelogram. 2. cystoscopy and dilation of right ureteropelvic junction obstruction. 3. cystoscopy and placement of right ureteral stent open (the 8 Estonian, 24 cm ). Same procedure as scheduled: Yes Indications: 1. right ureteropelvic junction obstruction. 2. Pain Surgeon: Rosa Conteh Click Yes if Unassisted: Yes Anesthesia Type: General Operative Notes Findings: the patient was positioned in supine and was administered general anesthesia. She was then repositioned in semi lithotomy in the lower abdomen genitalia and groin were prepped and draped in sterile fashion. The 22 Estonian panendoscope was then passed the lower urinary tract with findings of an normal bladder urothelium throughout and normal appearing orifices bilaterally. A 0.35 glidewire was then advanced in the right collecting system under direct and fluoroscopic guidance. Next a 18 Estonian by 4 cm balloon dilating catheter was advanced over the glidewire and positioned across the region of the ureteropelvic junction. The Glidewire was temporarily removed. A retrograde pyelogram was then performed demonstrating a relatively high insertion on the renal pelvis and about a 2 cm narrowed length proximally. Remainder of the ureter caliber appeared to be normal. There are no filling defects within the renal pelvis. A couple of small stones lying dependently were noted as seen on outpatient CT scan. The Glidewire was then replaced again under direct fluoroscopic guidance the balloon dilating catheter was then positioned across the right ureteropelvic junction and proximal ureteral narrowing. The balloon was then inflated to 18 atmospheres and held in position for 5 minutes. The wire was then temporarily removed and a retrograde pyelogram was performed showing increased diameter and excellent drainage from the system. The wire was then replaced in the balloon dilating catheter was backloaded off the wire. An 8 Estonian, 24 cm length double-J ureteral stent was then selected and advanced over the Glidewire again under direct and fluoroscopic guidance and was positioned satisfactorily in the right collecting system. No retrieval line was left attached. The bladder was then drained completely and all instrumentation was removed a final time. The patient was then repositioned in supine was awakened and transferred to a gurney in stable condition. Closure Type: not applicable Specimen(s): none sent Applied: other ( 8 Estonian, 24 cm ureteral stent) Estimated Blood Loss (mL): 0 Blood products transfused: none Tourniquet time (min): 0 Procedure in detail: see description under findings. Complications: none Post-operative Condition: stable Disposition: PACU Plan for aftercare: 1. schedule MAG 3 Lasix renogram In 4 weeks. [address] Kamara 4-6 weeks.
== END 2019-08-31 13:10 | disposition home or self-care (01) ==
PROVIDERS: Family Provider Internal Medicine; PCP Internal Medicine; Referring Provider Specialist; Visit Provider Specialist
PROC: (CPT 52332; principal; 2019-08-31 10:30)
DX: N20.1 Calculus of ureter (principal)
CPT/HCPCS: 52332; 74021; 76000; J0690; J2250; J2704; J3010

== ENCOUNTER → 2019-09-18 13:01 | Outpatient (CLI) | payer MEDICARE, OTHER, SELFPAY ==
--- NOTE | 2019-09-18 | DI.NM.S_ITS ---
PROCEDURE: NM RENAL FUNCTION W LASIX RADIOPHARMACEUTICAL: 10.3 mCi Tc-99m MAG3 IV and 40 mg furosemide IV. INDICATIONS: Unspecified hydronephrosis TECHNIQUE: The patient was hydrated orally before the examination was begun. After intravenous administration of Tc-99m MAG3, posterior abdominal radionuclide angiogram and sequential (1 minute each frame) renal images were obtained. A time-activity curve for each kidney was generated and analyzed. To evaluate for obstruction, the patient was given 40 mg furosemide via slow intravenous injection after the start of the examination. Sequential images were obtained for up to an additional 20 minutes. COMPARISON: [facility], CR, XR ABDOMEN 3V, 08/31/2019, 11:35. [facility], CT, CT ABDOMEN PELVIS W CON, 06/14/2019, 12:21. [place], [place], [place] RENAL FUNCTION W LASIX, 08/02/2019, 9:57. FINDINGS: Perfusion: There is normal vascular flow to both kidneys. Morphology: Both kidneys are normal in size and shape. The right renal pelvis is dilated. No left renal collecting system dilation. Ureters and bladder fill with tracer, and appear normal. Function: The left kidney demonstrates normal cortical tracer uptake, with uxqz-oy-shay activity at 5 minutes. There is mildly delayed right renal cortical uptake. The right kidney contributes 44.2% of total renal function. The left kidney contributes 55.8% of total renal function. (Previously right kidney 40.7%; left kidney 59.3%) Lasix stimulation: After diuretic administration, there is prompt clearance of tracer activity from the renal collecting systems in both kidneys. The half-time of emptying of tracer activity from the right pelvicaliceal system is ~15 minutes. The half-time of emptying from the left pelvicaliceal system is 10.7 minutes. Normal emptying half-times are less than 10 minutes; borderline ranges are from 10 to 20 minutes. IMPRESSION: 1. Dilated right renal collecting system, likely sequelae of chronic right UPJ obstruction. The estimated T1/2 for the right kidney is approximately 15 minutes, which is essentially unchanged from the last exam. 2. Normal left renal function. The calculated T1/2 for the left kidney is approximately 10.7 minutes. 3. Slight interval improvement of split renal function (right kidney 44.2% and left kidney 55.8%). Dictated by: Sandra Arcos M.D. on 09/18/2019 at 15:36 Approved by: Sandra Arcos M.D. on 09/18/2019 at 15:54
== END ==
PROVIDERS: Family Provider Internal Medicine; PCP Internal Medicine; Referring Provider Specialist; Visit Provider Specialist
DX: N13.30 Unspecified hydronephrosis (principal); N28.89 Other specified disorders of kidney and ureter
CPT/HCPCS: 78708; A9562

== ENCOUNTER → 2020-04-15 10:47 | Outpatient (CLI) | payer MEDICARE, OTHER, SELFPAY ==
--- NOTE | 2020-04-15 | DI.MG.S_ITS ---
BILATERAL DIGITAL SCREENING MAMMOGRAM 3D/2D WITH CAD: 04/15/2020 CLINICAL: Routine screening. Family history of breast cancer. Comparison is made to exams dated: 11/22/2018 mammogram, 04/03/2013 mammogram, 03/13/2010 mammogram, and 01/23/2008 mammogram - [facility]. There are scattered fibroglandular elements in both breasts. Current study was also evaluated with a Computer Aided Detection (CAD) system. There is a biopsy clip in the left breast. No significant masses, calcifications, or other findings are seen in either breast. There has been no significant interval change. IMPRESSION: NEGATIVE There is no mammographic evidence of malignancy. A 1 year screening mammogram is recommended. This exam was interpreted at Station ID: [id number]. NOTE: For mammograms, a report in lay terms will be sent to the patient. Approximately 15% of breast malignancies will not be visualized mammographically. In the management of a palpable breast mass, a negative mammogram must not discourage biopsy of a clinically suspicious lesion. Electronically Signed By: Anurag reddy/miri:04/15/2020 13:44:39 letter sent: Normal Exam ACR BI-RADS Category 1: Negative [id number]
== END ==
PROVIDERS: Family Provider Internal Medicine; PCP Internal Medicine; Referring Provider Internal Medicine; Visit Provider Internal Medicine
DX: Z12.31 Encounter for screening mammogram for malignant neoplasm of breast (principal); Z80.3 Family history of malignant neoplasm of breast
CPT/HCPCS: 77063; 77067

== ENCOUNTER → 2020-05-24 | Outpatient (CLI) | payer MEDICARE, OTHER, SELFPAY | PROVIDERS: Family Provider Internal Medicine; PCP Internal Medicine; Referring Provider Internal Medicine; Visit Provider Internal Medicine | DX: Z23 Encounter for immunization (principal) | CPT/HCPCS: 90471; 90662 ==

== ENCOUNTER → 2020-07-16 13:36 | Outpatient (CLI) | payer MEDICARE, OTHER, SELFPAY ==
[2020-07-16] MEDS: COVID-19 VACC(MODERNA-1)/PF 100 MCG/0.5 ML VIAL IM (13:40)
== END ==
PROVIDERS: Family Provider Internal Medicine; PCP Internal Medicine; Visit Provider Internal Medicine
DX: Z23 Encounter for immunization (principal)
CPT/HCPCS: 0011A; 91301

== ENCOUNTER → 2020-08-12 13:56 | Outpatient (CLI) | payer MEDICARE, OTHER, SELFPAY ==
[2020-08-12] MEDS: COVID-19 VACC #2, MRNA(MOD) 100 MCG/0.5 ML VIAL IM (14:02)
== END ==
PROVIDERS: Family Provider Internal Medicine; PCP Internal Medicine; Visit Provider Internal Medicine
DX: Z23 Encounter for immunization (principal)
CPT/HCPCS: 0012A; 91301

== ENCOUNTER 2020-10-22 21:09 | Emergency (ER) | payer OTHER, SELFPAY ==
[2020-10-22 21:12] VITALS: BP 165/74; PULSE 64; RESP 18; TEMP 37.2; O2SAT 96
--- NOTE | 2020-10-22 21:28 | ED.GENADULT ---
HPI - General Adult General Chief complaint: Extremity Injury, Upper Stated complaint: rt shoulder injury Time Seen by Provider: 10/22/20 21:21 Source: patient Mode of arrival: Ambulatory Limitations: no limitations History of Present Illness HPI narrative: 70-year-old female who over the past couple weeks was involved in 2 separate episodes while at work a combative patient twisted her arm. Since that time she has had continued discomfort in the area. There has been no prior injury. Related Data Home Medications Medication Instructions Recorded Confirmed nitroglycerin 0.4 mg SUBLINGUAL Q5-15M PRN #0 09/12/09 08/29/19 atenolol 25 mg PO BEDTIME #0 08/07/11 08/31/19 celecoxib [Celebrex] 200 mg PO PM #0 08/07/11 08/31/19 amlodipine 10 mg PO DAILY 09/01/18 08/31/19 lorazepam 1 - 2 mg PO BEDTIME PRN 09/01/18 08/31/19 oxycodone 5 mg PO 1-2XD PRN 09/01/18 08/31/19 aspirin 81 mg PO DAILY 09/25/18 08/31/19 atorvastatin 20 mg PO BEDTIME 09/25/18 08/31/19 cholecalciferol (vitamin D3) 5,000 unit PO DAILY 09/25/18 08/31/19 [Vitamin D3] lidocaine 1 patch TOPICAL DAILY 09/25/18 08/31/19 Resmed Airsense 10 CPAP #1 ea 10/02/18 05/01/19 Previous Rx's Medication Instructions Recorded tamsulosin [Flomax] 0.4 mg PO DAILY #10 cap 09/25/18 oxycodone 5 mg PO Q4H PRN #10 cap 08/31/19 hydrocodone-acetaminophen 1 tab PO Q4H PRN #10 tab 10/22/20 Allergies Allergy/AdvReac Type Severity Reaction Status Date / Time ALISTAIR Inhibitors Allergy Severe ANGIOEDEMA Verified 08/31/19 09:38 [ALISTAIR INHIBITORS] lisinopril [LISINOPRIL] Allergy Severe ANGIOEDEMA Verified 08/31/19 09:38 latex [LATEX] Allergy Mild less Verified 08/31/19 09:38 irritation from non-latex on mucus membranes Review of Systems Constitutional Constitutional: Denies fever(s) and Denies headache(s) ENT Ears, Nose, Mouth, and Throat: Denies headache(s) Cardiovascular Cardiovascular: Denies chest pain and Denies dyspnea Respiratory Respiratory: Denies dyspnea Gastrointestinal Gastrointestinal: Denies abdominal pain Musculoskeletal Musculoskeletal: Denies tingling Comments: Right shoulder pain Integumentary/Breasts Skin/Breast: Denies rash Neurologic Neurologic: Denies headache(s) and Denies tingling Psychiatric Psychiatric: Denies anxiety Patient History Medical History Anxiety CAD (coronary artery disease) Insomnia Obstructive sleep apnea S/P right hip fracture Surgical History (Updated 08/29/19 @ 15:03 by Keyanna Laurent RN) H/O heart artery stent (2009) History of bilateral cataract extraction History of Hx of appendectomy Previous back surgery Social History household members: significant other Smoking Status: Current every day smoker alcohol intake: current Smoking Status: Current every day smoker alcohol intake frequency: 0-2 drinks per day Substance Use Type: does not use Exam Initial Vital Signs Initial Vital Signs: Vital Signs Temperature 99.0 F 10/22/20 21:12 Pulse Rate 64 10/22/20 21:12 Respiratory Rate 18 10/22/20 21:12 Blood Pressure 165/74 H 10/22/20 21:12 Pulse Oximetry 96 10/22/20 21:12 Const General: cooperative Limitations: mental status not altered HENMT Head: normal to inspection and normocephalic Resp Effort & Inspection: normal respiratory effort Cardio Pulses: radial pulses present on the right Skin Lesions: no lesions Rashes: no rashes Neuro Sensory Exam: no sensory deficits noted Extrem Other: She does seem to have tenderness throughout her right shoulder. Some tenderness with palpation of the biceps tendon however this did not seem to provoke the exact discomfort that she has been having. Also has some tenderness with Neer test and Emery test. She seems to be most tender over the latissimus. No tenderness over the triceps. She has a negative drop can test. Psych Appearance: grossly normal and well kempt Course Orders Ordered: ED Orders 10/22/20 21:28 XR shoulder RT min 2V Stat Discontinued Medications Hydrocodone Bitart/Acetaminophen (Hydrocodone/Acet 5/325 Prepack) 1 bottle MISC SEEINSTR ONE Stop: 10/22/20 21:29 Last Admin: 10/22/20 21:38 Dose: 1 bottle Documented by: RK Ketorolac Tromethamine (Ketorolac 60 Mg/2 Ml Vial) 30 mg IM NOW ONE Stop: 10/22/20 21:29 Last Admin: 10/22/20 21:39 Dose: 30 mg Documented by: RK Vital Signs Vital signs: Vital Signs - 8 hr 10/22/20 21:12 Temperature 99.0 F Pulse Rate 64 Respiratory Rate 18 Blood Pressure 165/74 H Pulse Oximetry 96 Medical Decision Making Imaging Data Extremity x-ray #1: Radiologist's Impression: [address] [id number] ReportSigned Patient: Sheridan Oconnor HMR#: [id number]: [id number]:[id number]/Sex: 70 / FDate of Service: 10/22/20Loc: EDAccession Number: [id number] Procedure: XR shoulder RT min 2V Ordering Provider: Sergio Dominguez D.O. PROCEDURE: XR SHOULDER RT MIN 2V INDICATIONS: pain after injury TECHNIQUE: Three views of the shoulder were acquired. COMPARISON: None. FINDINGS: Bones: No fractures or dislocations. Moderate degenerative changes at the glenohumeral joint including spurring and joint space loss. No suspicious bony lesions. Visualized ribs appear intact. Soft tissues: No suspicious soft tissue calcifications. IMPRESSION: 1. No fracture, dislocation, or separation. Next 2. Degenerative glenohumeral joint changes. Dictated by: Mara Pierce M.D. on 10/22/2020 at 22:16 Approved by: Mara Pierce M.D. on 10/22/2020 at 22:1 [facility] Narrative Medical decision making narrative: Neurovascularly intact an x-ray showed no signs of fracture. Was difficult to exactly pinpoint with testing what could potentially be causing her symptoms. I have low suspicion for rotator cuff tear given her exam. Some suspicion for internal injury to include labral tear. For now will treat symptoms. She was given Toradol. Was given return precautions and follow-up instructions. Have her follow up with primary doctor. She expressed understanding and agreement. Discharge Plan Departure Patient Disposition: Home Clinical Impression: Acute pain of right shoulder Instructions: DI for Shoulder Pain Activity Restrictions/Additional Instructions: Take the medications as directed. Contact your primary provider for a follow-up. Return to the emergency department for any new or worsening symptoms Prescriptions: New hydrocodone-acetaminophen 5-325 mg tablet 1 tab PO Q4H PRN (Reason: pain) Qty: 10 RF: 0 No Action nitroglycerin 0.4 mg Tablet, Sublingual 0.4 mg SUBLINGUAL Q5-15M PRN (Reason: Chest Pain) Qty: 0 RF: 0 atenolol 25 MG tablet 25 mg PO BEDTIME Qty: 0 RF: 0 celecoxib [Celebrex] 200 MG capsule 200 mg PO PM Qty: 0 RF: 0 amlodipine 10 mg tablet 10 mg PO DAILY RF: 0 lorazepam 1 mg tablet 1 - 2 mg PO BEDTIME PRN (Reason: SLEEP, RLS, MUSCLE SPASM) RF: 0 oxycodone 5 MG tablet 5 mg PO 1-2XD PRN (Reason: PAIN) RF: 0 atorvastatin 20 mg tablet 20 mg PO BEDTIME RF: 0 aspirin 81 mg Tablet,Delayed Release (Dr/Ec) 81 mg PO DAILY RF: 0 lidocaine 5 % Adhesive Patch,Medicated 1 patch TOPICAL DAILY RF: 0 cholecalciferol (vitamin D3) [Vitamin D3] 5,000 unit Tablet 5,000 unit PO DAILY RF: 0 tamsulosin [Flomax] 0.4 mg capsule 0.4 mg PO DAILY Qty: 10 RF: 0 oxycodone 5 mg capsule 5 mg PO Q4H PRN (Reason: pain) Qty: 10 RF: 0 (DME) Resmed Airsense 10 CPAP Qty: 1 RF: 0 Referrals: Bisi Núñez MD [Primary Care Provider] -
[2020-10-22] MEDS: HYDROCODONE/ACET 5/325 PREPACK 1 BOTTLE MISC (21:38)
[2020-10-22] MEDS: KETOROLAC 60 MG/2 ML VIAL 30 MG IM (21:39)
== END 2020-10-22 22:02 | disposition home or self-care (01) ==
PROVIDERS: Emergency Provider Emergency Medicine; Family Provider Internal Medicine; PCP Internal Medicine
DX: M25.511 Pain in right shoulder (principal); Y04.2XXA Assault by strike against or bumped into by another person, initial encounter; Y99.0 Civilian activity done for income or pay
CPT/HCPCS: 73030; 96372; 99283; J1885

== ENCOUNTER → 2020-11-13 09:33 | Outpatient (CLI) | payer OTHER, SELFPAY ==
--- NOTE | 2020-11-13 09:36 | DI.MRI.S_ITS ---
PROCEDURE: MR SHOULDER RT WO CON INDICATIONS: rotator cuff tear or rupture of right shoulder TECHNIQUE: Noncontrast oblique coronal T2 fast spin echo with fat saturation, oblique sagittal T1 spin echo and T2 fast spin echo with fat saturation, axial T1 spin echo and T2 fast spin echo with fat saturation through the shoulder. COMPARISON: [facility], CR, XR SHOULDER RT MIN 2V, 10/22/2020, 21:28. FINDINGS: Image quality: Excellent. Rotator cuff: There is moderate supraspinatus and infraspinatus tendinosis. A small moderate grade partial intrasubstance and possibly bursal sided tear of the infraspinatus tendon is seen at the anterior footprint measuring 5 mm in anterior-posterior dimension. Fluid is seen tracking medially along the infraspinatus tendon sheath. The teres minor tendon is intact. There is moderate subscapularis tendinosis. There is no significant rotator cuff muscle atrophy. Bones and bursae: No bone marrow contusions or fractures. Chronic traction cystic changes are seen at the posterosuperior humeral head and the greater tuberosity near the rotator cuff tendon insertions. There is degenerative spurring of the glenoid rim and the inferior humeral head. Full-thickness cartilage loss is seen in the central glenoid and superomedial humeral head with areas of subchondral cystic changes. Mild acromioclavicular joint osteoarthrosis is seen. A small subacromial/subdeltoid bursal effusion is present. A small glenohumeral joint effusion is seen with mild synovial hypertrophy in the axillary recess. Capsule and soft tissues: There is nondisplaced tearing of the posterior, superior, and anterior labrum. Multiple paralabral cysts are seen. At the superior labrum, a lobular cyst measures 3.2 x 1.0 x 0.4 cm extending medially over the glenoid rim close to the supraspinatus notch without signs of rotator cuff denervation. An anterior paralabral cyst measures 1.2 by 0.6 x 1.3 cm. An anteroinferior paralabral cyst measures 1.3 x 0.6 x 0.5 cm. The biceps long head tendon demonstrates mild tendinosis. There is partial effacement of the fat in the rotator interval. The inferior glenohumeral ligament is normal in thickness. IMPRESSION: 1. Small, moderate-grade intrasubstance and bursal sided tearing of the infraspinatus tendon at the anterior footprint measuring 0.5 cm in anterior-posterior dimension. Fluid is seen tracking medially along the infraspinatus tendon. No definite extension to the articular surface is seen. 2. Moderate rotator cuff tendinosis involving the supraspinatus, infraspinatus, and subscapularis tendons. 3. Nearly circumferential labral tearing involving the posterior, superior, and anterior labrum with relative sparing of the inferior labrum. Multiple paralabral cysts are seen as described above, including extending into the suprascapular notch without signs of denervation in the rotator cuff musculature. 4. Mild tendinosis of the proximal biceps long head tendon. 5. Glenohumeral degenerative changes including full-thickness cartilage loss, subchondral cystic changes, and marginal osteophyte formation. Small glenohumeral effusion with mild synovial hypertrophy. 6. Mild acromioclavicular joint osteoarthrosis. 7. Small subacromial/subdeltoid bursal effusion or bursitis. 1. Dictated by: Hoang Cole M.D. on 11/13/2020 at 10:40 Approved by: Hoang Cole M.D. on 11/13/2020 at 11:00
== END ==
PROVIDERS: Family Provider Internal Medicine; PCP Internal Medicine; Referring Provider Orthopaedic Surgery; Visit Provider Orthopaedic Surgery
DX: M75.101 Unspecified rotator cuff tear or rupture of right shoulder, not specified as traumatic (principal); M19.011 Primary osteoarthritis, right shoulder
CPT/HCPCS: 73221

== ENCOUNTER → 2021-02-02 08:22 | Outpatient (CLI) | payer OTHER, SELFPAY ==
[2021-02-02 09:38] LABS: Hemoglobin A1C% w Est Avg Glu 6.1 % (4.0-6.0)
[2021-02-02 09:39] LABS: Add Manual Diff / Slide Review NO; Basophils Absolute Auto 0 /uL (0-100); Basophils Percent Auto 0.4 % (0-2); Eosinophils Absolute Auto 200 /uL (0-450); Eosinophils Percent Auto 2.4 % (2-4); Hematocrit 42.5 % (36-46); Hemoglobin 14.2 g/dL (12.0-16.0); Lymphocytes Absolute Auto 2400 /uL (1100-4500); Lymphocytes Percent Auto 29.7 % (25-40); Mean Corpuscular HGB Conc 33.3 % (30-36); Mean Corpuscular Hemoglobin 31.2 PG (26-34); Mean Corpuscular Volume 93.8 fL (80-100); Monocytes Absolute Auto 600 /uL (0-900); Monocytes Percent Auto 7.3 % (3-14); Neutrophils Absolute Auto 4900 /uL (1500-7000); Neutrophils Percent Auto 60.2 % (50-75); Platelet Count 217 X10^3/uL (150-400); Red Blood Cell Count 4.53 X10^6/uL (4.0-5.2); Red Cell Distribution Width 14.1 % (11.6-14.8); White Blood Cell Count 8.1 X10^3/uL (4.5-11.0)
[2021-02-02 09:49] LABS: BUN Creatinine Ratio 24.2 (6-22); Blood Urea Nitrogen 15 mg/dL (7-17); Calcium 9.2 mg/dL (8.4-10.2); Carbon Dioxide 25 mmol/L (22-32); Chloride 103 mmol/L (98-107); Estimated Glomerular Filt Rate > 60.0 mL/min (>60); Glucose 122 mg/dL (80-110); HEMOLYSIS < 15 (0-50); Potassium 4.2 mmol/L (3.4-5.1); Sodium 138 mmol/L (137-145)
== END ==
PROVIDERS: Family Provider Internal Medicine; PCP Internal Medicine; Referring Provider Orthopaedic Surgery; Visit Provider Orthopaedic Surgery
DX: Z01.818 Encounter for other preprocedural examination (principal); M25.512 Pain in left shoulder; R73.9 Hyperglycemia, unspecified; Z01.812 Encounter for preprocedural laboratory examination
CPT/HCPCS: 36415; 80048; 83036; 85025; 93005; 93010

== ENCOUNTER → 2021-02-14 09:10 | Outpatient (CLI) | payer OTHER, SELFPAY ==
[2021-02-14 10:34] LABS: COVID19 -Nasal RAPID Negative (Negative)
== END ==
PROVIDERS: Family Provider Internal Medicine; PCP Internal Medicine; Visit Provider Physician Assistant
DX: Z20.822 Contact with and (suspected) exposure to COVID-19 (principal)
CPT/HCPCS: 87635

== ENCOUNTER 2021-02-16 10:28 | Day surgery (SDC) | payer OTHER, SELFPAY ==
[2021-02-09 09:06] VITALS: BMI 35.4
[2021-02-16] VITALS (14 sets, daily range): BP systolic 99–170; BP diastolic 48–84; PULSE 55–74; RESP 13–17; TEMP 36.1–36.9; O2SAT 88–98; BMI 35.4
--- NOTE | 2021-02-16 | DI.RAD.S_ITS ---
PROCEDURE: XR SHOULDER RT 1V INDICATIONS: RIGHT TOTAL SHOULDER TECHNIQUE: 1 views of the shoulder were acquired. COMPARISON: [facility], CR, XR SHOULDER RT MIN 2V, 10/22/2020, 21:28. FINDINGS: Bones: Interval humeral head arthroplasty. No fractures or dislocations. No suspicious bony lesions. Visualized ribs appear intact. Soft tissues: No suspicious soft tissue calcifications. IMPRESSION: Humeral head arthroplasty projects in the expected location. Dictated by: Anurag Marcus M.D. on 02/16/2021 at 16:43 Approved by: Anurag Marcus M.D. on 02/16/2021 at 16:44
[2021-02-16] MEDS: LACTATED RINGERS 1,000 ML 42 ML IV (11:10)
[2021-02-16] MEDS: ACETAMINOPHEN 325 MG TABLET 975 MG PO (11:11)
[2021-02-16] MEDS: CELECOXIB 200 MG CAPSULE PO ×2 (11:12→17:47)
[2021-02-16] MEDS: PREGABALIN 75 MG CAPSULE PO (11:12)
--- NOTE | 2021-02-16 12:23 | PM.PREOP ---
Pre-operative Note COVID-19 COVID-19 status: Negative Result date/Date tested (Pos, Neg/Pending): 02/14/21 Interval Note History & Physical reviewed/Exam performed by Physician: Yes Changes to H&P: No
--- NOTE | 2021-02-16 12:32 | P.OP_ITS ---
Operative Date/Time/Diagnoses Date of procedure: 02/16/21 Time of procedure: 15:23 Pre-op diagnosis: Right shoulder osteoarthritis Post-op diagnosis: same Procedure & Clinicians Procedure: Right total shoulder replacement Same procedure as scheduled: Yes Indications: The patient has had progressively worsening right shoulder pain with radiographic changes consistent with arthritis. Non-operative management has failed and the patient has requested total shoulder replacement. The risks, benefits and alternatives to surgery were discussed with the patient prior to proceeding. Risks discussed included, but were not limited to, failure to relieve pain, stiffness, infection, nerve damage, deep venous thrombosis, pulmonary embolism, stroke, coma, heart attack, permanent paralysis and , as well as the potential need for eventual revision of the prosthetic. Surgeon: Bud Mistry Open Claims Representative: Sadiq Soni Click Yes if Unassisted: No Anesthesia Type: General, Peripheral nerve block and Local Operative Notes Findings: Significant osteoarthritis with eburnation of the humeral head and glenoid with minimal osteophyte formation Closure Type: primary Prosthetic devices, grafts, tissues, transplants, or devices: Implants used in this procedure manufactured by the [employer] and included a size 2 humeral stem and neck for a canal sparing prosthetic, a 46 mm x 18 mm humeral head and a 46 mm all polyethylene pegged E +glenoid. In addition an [employer] SpeedBridge 4 anchor set was used for subscapularis repair. Applied: implant(s) Estimated Blood Loss (mL): 200 Blood products transfused: none Procedure in detail: The patient was seen in the pre-operative area, where the patient identified the right shoulder as the operative site and this was marked with my initials. The patient received pre-operative antibiotics, underwent an interscalene block, and was taken to the operating room and placed on the operative table in the supine position. After satisfactory anesthesia, a full ?time out? was performed. The patient was repositioned in the ?beach chair? position using a dedicated positioner. All pressure points were well padded, and the knees were slightly bent to prevent tension on the sciatic nerves. The right arm was prepared from the fingers to the base of the neck with ChloroPrep in the usual fashion and draped through sterile drapes. An approximately 15 cm incision was created, starting at the clavicle above the coracoid process and extended towards the deltoid insertion. The deltopectoral interval was used to access the shoulder. The cephalic vein was taken medially. A self retaining retractor was placed. The upper centimeter of the pectoralis major tendon was released. The ?three sisters? were identified and cauterized. The axillary nerve was palpated and protected throughout the case. The biceps was released from its groove and tenodesed over the top of the pectoralis major tendon. The subscapularis was released from the lesser tuberosity with a subscapularis peel and tagged for later repair. The shoulder was dislocated and a cutting guide was used for the proximal humeral osteotomy in 30 degrees of retroversion. The humeral head was sized at a 46. The central guide pin was drilled. The proximal Reamer was used followed by the central body Reamer and the broach was placed. A proximal humeral protector was then placed. We then removed the self-retaining retractor and placed retractors to access the glenoid. The subscapularis was released with a ?360 degree release? with care being taken to protect the axillary nerve with the inferior portion of this procedure. The remnant of labrum and biceps stump were removed. The 46 mm glenoid Sizer was applied and appeared to be the appropriate size. The guide pin was drilled. The glenoid was appropriately reamed. The guide for the peripheral holes was used and the center hole enlarged. The trial glenoid was placed with good stability. We then cemented the final implant into place after irrigating the peg holes and drying them with thrombin-soaked Gelfoam. We returned our attention to the humerus, a trial humeral head was applied and a trial reduction performed. Stability was checked with 50% posterior translation with spontaneous reduction, 45? external rotation at the side with the subscapularis in the repaired position and 70? of internal rotation in the ?scarecrow position?. This was felt to be satisfactory and the appropriate implants were opened. The humeral prosthetic was impacted into the humerus. The humeral head was applied when the stem was still slightly proud and impacted to both seat the head and fully seat the stem. The joint was relocated one final time. The joint was irrigated and the subscapularis using a Speedbridge technique. The top of the subscapularis was closed to the leading edge of the supraspinatus with a figure of 8 #2 TiCron to close the rotator interval. The retention sutures from the medial anchor row were used to reinforce the medial repair. The deltopectoral interval was closed with interrupted 0 Vicryl. The subcutaneous layer was closed with 3-0 Vicryl, and the skin with a running 3-0 V-Lock suture and Dermabond. An Aquacel Ag dressing was applied, the patient?s arm was placed in a sling, and the patient was taken to recovery having tolerated the procedure well. Post-operative Condition: stable Disposition: PACU Plan for aftercare: The patient will be maintained on a standard total shoulder replacement protocol with passive range of motion limited to 90 degrees forward flexion, 0 degrees external rotation at the side, 0 degrees abduction and internal rotation to the body. The patient will receive aspirin and sequential compression devices for DVT prophylaxis. The patient will be discharged home when safe for the home environment, likely tomorrow.
--- NOTE | 2021-02-16 13:02 | SUR.PREOP ---
Block start time [1239] . Monitoring initiated and maintained throughout procedure. Oxygen given per anesthesiologist instructions. Patient remained stable throughout procedure, no adverse reactions noted. Block end time [1253].
[2021-02-16] MEDS: CEFAZOLIN 1 GM VIAL 2 GM IV (13:28)
[2021-02-16] MEDS: TRANEXAMIC ACID 1,000 MG VIAL 1000 MG INJ (13:56)
--- NOTE | 2021-02-16 14:02 | SUR.OPER ---
Beach chair with Schlein shoulder positioner. Lower body on padded OR bed. Head in foam padded head cradle, secured with straps. Non-operative arm secured <90 degrees abduction. Pillow under knees. Safety belt at thigh. Cloth tape over blanket over lower legs.
[2021-02-16] MEDS: BUPIVACAINE 0.25% W/ EPI 30 ML VIAL INJ (14:07)
[2021-02-16] MEDS: THROMBIN (RECOMBINANT) 5,000 UNIT VIAL 5000 UNIT TOP (14:08)
[2021-02-16] MEDS: LACTATED RINGERS 1,000 ML 100 ML IV (16:34)
[2021-02-16] MEDS: ATORVASTATIN 20 MG TABLET PO (21:43)
[2021-02-16] MEDS: LORazepam 1 MG TABLET PO (21:44)
[2021-02-16] MEDS: atenoloL 25 MG TABLET PO (21:44)
[2021-02-16] MEDS: ACETAMINOPHEN 325 MG TABLET 650 MG PO (21:44)
[2021-02-16] MEDS: ASPIRIN EC 81 MG TABLET PO (21:44)
[2021-02-16] MEDS: AMLODIPINE 5 MG TABLET 10 MG PO (21:44)
[2021-02-17] MEDS: LACTATED RINGERS 1,000 ML 100 ML IV (02:07)
[2021-02-17 06:00] VITALS: BP 135/70; PULSE 66; RESP 18; TEMP 36.1; O2SAT 92
[2021-02-17] MEDS: OXYCODONE IR 5 MG TABLET PO (06:02)
[2021-02-17 06:53] LABS: Hematocrit 40.1 % (36-46); Hemoglobin 13.3 g/dL (12.0-16.0)
--- NOTE | 2021-02-17 07:33 | PM.DS.1 ---
History of Present Illness History of Present Illness Date Patient Seen: 02/17/21 Time Patient Seen: 07:33 Chief complaint: Right Total Shoulder Arthroplasty *OPB* Narrative: The history and physical is contained in the chart previously completed note. Please refer to that note for this information. Discharge Providers Provider Date of admission: February 16, 2021 Discharge Date: 02/17/21 Primary care physician: Veronika Cobian MD Consults: 02/16/21 16:16 Consult to Discharge Planning Routine Comment: Consult to Physical Therapy Evaluate & Treat Comment: Physician Instructions: pendulums, PROM 90 FF, 0 ERs, 0 Abd, IR to body Discharge provider: Bud Mistry MD Summary Hospital Course Discharge Diagnosis: Right shoulder osteoarthritis Hospital Course: The patient was admitted to the hospital and taken directly to the operating room on February 16, 2021. She underwent a right total shoulder replacement without complications. She was stable overnight and pain control was satisfactory. On postoperative day 1 she was ready for discharge home. Status at Discharge Cognitive/behavioral status at discharge: oriented Functional status at discharge: independent ambulation Overall status at discharge: patient is progressing back to baseline Time Spent with Patient Time spent: Less than 30 minutes Exam Vital Signs (past 8 hours): - 02/17/21 06:00 Temperature 97.0 F L Pulse Rate 66 Respiratory Rate 18 Blood Pressure 135/70 Pulse Oximetry 92 Oxygen Delivery Method CPAP Oxygen Flow Rate 0 Narrative Exam Narrative: Right shoulder wound is dressed with no drainage on the bandage. Light touch is intact in the radial, ulnar, median, muscular cutaneous and axillary nerve distributions. She can extend her thumb, abduct her thumb, abduct her fingers and can fire her biceps and deltoid. Objective Labs Result Diagrams: 02/17/21 06:37 Labs: Laboratory Results - last 24 hr 02/17/21 06:37 Hgb 13.3 Hct 40.1 PFSH Medical History (Updated 02/09/21 @ 10:09 by Keyanna Laurent RN) Arthritis CAD (coronary artery disease) Current every day smoker DDD (degenerative disc disease) Gout HLD (hyperlipidemia) HTN (hypertension) Insomnia Obstructive sleep apnea HAN on CPAP Osteoarthritis S/P right hip fracture Sinus bradycardia Tuberculosis Surgical History (Updated 02/09/21 @ 10:07 by Keyanna Laurent RN) H/O heart artery stent (07/26/09) History of bilateral cataract extraction History of bunionectomy (1977) History of History of colonoscopy with polypectomy History of lumbar spinal fusion History of total right hip arthroplasty Hx of appendectomy Hx of breast biopsy Hx of cervical spine surgery Hx of cervical spine surgery Hx of cystoscopy (~08/31/19) S/P epidural steroid injection S/P PTCA (percutaneous transluminal coronary angioplasty) Social History household members: significant other Smoking Status: Current every day smoker alcohol intake: current Discharge Assessment & Plan Assessment and Plan Assessment: Stable postoperative day 1 status post canal sparing right total shoulder. Plan of Treatment: Discharge to home. Follow-up at the office in 10-14 days. Discharge prescriptions for oxycodone and hydroxyzine have been called in to [facility]. She will be instructed on the use of low-dose aspirin twice a day for DVT prophylaxis and Tylenol for additional pain control. She has been instructed on her activity limitations with her shoulder. Discharge Plan Discharge Plan Patient Disposition: Home Discharge orders & Medications Discharge Orders: Discharge (Order); Ordered 02/17/21 Ordered By: Bud Mistry Prescriptions: New acetaminophen 325 mg Tablet 650 mg PO TID 30 Days Qty: 180 RF: 0 aspirin 81 mg Tablet,Delayed Release (Dr/Ec) 81 mg PO BID 42 Days Qty: 84 RF: 0 oxycodone 5 mg Tablet 5 mg PO Q4H PRN (Reason: Pain, Moderate (4-6)) Qty: 40 RF: 0 hydroxyzine pamoate 25 mg Capsule 25 mg PO Q6HR PRN (Reason: Nausea) Qty: 30 RF: 0 Continued nitroglycerin 0.4 mg Tablet, Sublingual 0.4 mg SUBLINGUAL Q5-15M PRN (Reason: Chest Pain) Qty: 0 RF: 0 atenolol 25 MG tablet 25 mg PO BEDTIME Qty: 0 RF: 0 celecoxib [Celebrex] 200 MG capsule 200 mg PO PM Qty: 0 RF: 0 amlodipine 10 mg tablet 10 mg PO BEDTIME RF: 0 lorazepam 1 mg tablet 1 mg PO BEDTIME PRN (Reason: SLEEP, RLS, MUSCLE SPASM) RF: 0 atorvastatin 20 mg tablet 20 mg PO BEDTIME RF: 0 cholecalciferol (vitamin D3) [Vitamin D3] 25 mcg (1,000 unit) Capsule 25 mcg PO DAILY RF: 0 Wal-Finate 1 tab PO DAILY RF: 0 Discontinued aspirin 81 mg Tablet,Delayed Release (Dr/Ec) 81 mg PO BEDTIME RF: 0 No Action (DME) Resmed Airsense 10 CPAP Qty: 1 RF: 0 Follow up/Referrals: Bud Mistry MD [Physician] - 2 Weeks Veronika Cobian MD [Primary Care Provider] - Diet/Activity/Treatments Diet: Diet as Tolerated and Regular Activity: Wear your sling under most circumstances. You may use your right hand in front of your body below shoulder level. Lift no more than 1-2 lb with your right hand. Cold/Heat Therapy: You may apply ice to your right shoulder for 15 minutes every hour as needed for pain control. Skin/Wound/Dressing Care Report to your healthcare provider any signs of infection, such as:: chills, fever, night sweats, increased pain, unusual drainage and unusual redness Dressing: Leave your dressing intact until postoperative follow-up. You may shower with the dressing in place. If the central strip of the dressing becomes saturated with either water or blood, please call the office to have it evaluated. Visit Report/Discharge Packet Instructions: DI for Shoulder Replacement Stand Alone Forms: Surgery Discharge Discharge Data Primary Care Provider: Veronika Cobian Attending Provider: Bud Mistry
[2021-02-17] MEDS: ACETAMINOPHEN 325 MG TABLET 650 MG PO (08:49)
[2021-02-17] MEDS: ASPIRIN EC 81 MG TABLET PO (08:50)
[2021-02-17] MEDS: CHOLECALCIFEROL (VITAMIN D3) 1,000 UNIT TABLET 1000 UNIT PO (08:50)
[2021-02-17] MEDS: DOCUSATE 100 MG CAPSULE PO (08:50)
--- NOTE | 2021-02-17 10:10 | PT.IIE ---
Current Diagnoses Primary osteoarthritis, right shoulder (02/16/21) Surgery Performed Operation Date: 02/16/21 12:45 Actual Procedures p Total Shoulder Arthroplasty(Right) - Bud Mistry MD Medical History (Last Updated 02/09/21 @ 09:26 by Keyanna Laurent RN) Arthritis CAD (coronary artery disease) Current every day smoker DDD (degenerative disc disease) Gout HLD (hyperlipidemia) HTN (hypertension) Insomnia Obstructive sleep apnea HAN on CPAP Osteoarthritis S/P right hip fracture Sinus bradycardia Tuberculosis Physical Therapy Inpatient Evaluation/Re-Eval M1 PT/OT-IP Prior Functional Status Start: 02/17/21 08:35 Freq: NEEDED Status: Active Protocol: Document 02/17/21 10:10 AW (Rec: 02/17/21 11:14 AW [id number]) Medical Review Prior Functional Status Medical History Reviewed Yes Communication WNL Mobility and Gait Pt is active and indepdendent without meaningful limit. Activities of Daily Living and IADL's Pt sustained shoulder injury in September and has needed occasional assist with dressing since that time. She is otherwise independent with ADL's. Prior Functional Level (Other details) Pt is right hand dominant. She had JEANIE in 2012. Social History Household Members significant other Living Arrangements House Number of Floors (Floors) One Floor Number of Stairs To Enter/Railing? 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 She lives in [place] with her significant other, Marion, who will be available and able to provide light assist at discharge. M2 PT-IP Current Condition Start: 02/17/21 08:35 Freq: NEEDED Status: Active Protocol: Document 02/17/21 10:10 AW (Rec: 02/17/21 11:14 AW [id number]) Physical Therapy Current Condition Current Condition Evaluation Date 02/17/21 Treatment Diagnosis R TSA; impaired independence with ADL's Onset Date 02/16/21 Precautions Shoulder Precautions Sling,PROM,Internal Rotation to Body,No External Rotation, No Abduction,Forward Flexion to 90 degrees,Pendulums Brace soft sling for comfort M3 PT-IP Subjective Start: 02/17/21 08:35 Freq: NEEDED Status: Active Protocol: Document 02/17/21 10:10 AW (Rec: 02/17/21 11:14 AW [id number]) Subjective Physical Therapy Visit Type Type Initial Evaluation Visit Start Time 09:45 Visit Stop Time 10:10 Total Visit Minutes 25 Number of TERRITORY BUSINESS MANAGER Visits 0 Physical Therapy Visit Comments Patient Comments Pt is preparing for discharge, would like help with sling fit. Patient Goals Return home with SO support. Therapy Pain Assessment Pain When Pain Assessed At Rest Pain Present Pain Present Pain Reported Location right shoulder Intensity 3 Scale Used Numeric (0 - 10) Pain Management Techniques Apply Cold,Timing of Activity with Medications M4 PT-IP Mobility and Gait Start: 02/17/21 08:35 Freq: NEEDED Status: Active Protocol: Document 02/17/21 10:10 AW (Rec: 02/17/21 11:14 AW [id number]) PT-Bed Mobility Assessment Supine to Sit Supine to Sit Standby Assistance Scooting Scooting to Edge of Bed Standby Assistance PT-Transfer Assessment Sit to and From Stand Sit to and from Stand Standby Assistance Equipment Transfer Assistive Device None Orthotic/Prosthetic Devices or Brace: Yes Transfers Transfer Destination Chair Transfer Technique pt ambulated without AD Transfer Ability Level of Assist Standby Assistance Comments Mobility Comments Pt was lying in bed as PT arrived. She completed all bed mobility, sit to stand, and transfers SBA with RUE in good supported position. Gait Assessment Gait Gait Assistance Required: Standby Assistance Distance (Feet) 150 Assistive Devices Assistive Device None Orthotic/Prosthetic Devices or Brace: Yes Gait Deviations General Gait Pattern Lateral Trunk Lean,Wide Based Gait Comments Gait Comments Pt ambulated without AD SBA. No LOB. Increased lateral lean in stance phase is baseline per pt report. Stair Climbing Assessment Evaluation Level of Assist On Stairs Standby Assistance Devices Stair Climbing Assistive Devices Right Railing Technique/Endurance Stair Climbing Direction Ascend and Descend Stair Climbing Technique Step to Step Number of Steps Climbed 3 Query Text: Stair Climbing Set # Repetitions (reps) 1 Comments Stair Climbing Comments Pt ascended safely with no rail and descended with rail.. PT-Balance Assessment Sitting Balance and Reactions Static Sitting Balance Ability Good Dynamic Sitting Balance Ability Good Standing Balance and Reactions Static Standing Balance Ability Good Dynamic Standing Balance Ability Good Device Used no AD M5 PT-IP Objective Assessments Start: 02/17/21 08:35 Freq: NEEDED Status: Active Protocol: Document 02/17/21 10:10 AW (Rec: 02/17/21 11:14 AW [id number]) Orientation Orientation/Cognition Level of Alertness Alert Orientation Name,Day of Week,Place, Situation Language Function Ability No Deficits Noted Safety Awareness Understands Safety Issues Memory Description No Deficits Noted Gross Range of Motion Upper Extremity ROM Assessment Right Impaired Lower Extremity ROM Assessment Within Functional Limits Strength Upper Extremity Strength Assessment Right Impaired Lower Extremity Strength Assessment Within Functional Limits Sensation Assessment Sensation Gross Sensation WNL M6 PT-IP Treatment Start: 02/17/21 08:35 Freq: NEEDED Status: Active Protocol: Document 02/17/21 10:10 AW (Rec: 02/17/21 11:14 AW [id number]) Physical Therapy Treatment Exercises Exercises Shoulder Pendulums,Elbow Flexion/Extension,Wrist ROM, Hand ROM Education Education Provided Precautions,Post-Op Packet, Safety Brace Education [place],Patient Equipment Issued Equipment Type and Company Pt was brought from the OR in a medium sized sling but needed a large for proper fit. Exchanged sling with one from [facility]. Other Treatments Other Treatment Performed Educated pt on proper fit and function of sling. Provided handout with ADL management tips and AROM exercises for reference at home. M7 PT-IP Assessment and Plan Start: 02/17/21 08:35 Freq: NEEDED Status: Active Protocol: Document 02/17/21 10:10 AW (Rec: 02/17/21 11:14 AW [id number]) PT Summary Assessment and Plan Potential Rehabilitation Potential Good Status of Condition at Evaluation Stable Summary Impairments Pain,ROM,Strength Assessment Summary Sheridan is s 71 yo woman seen for PT evaluation on POD1 following R TSA. She is right hand dominant. 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 She presents with decreased strength and ROM in her right shoulder which are limiting her ability to care for herself. She was able to mobilize safely with SBA during this assessment. She will have her significant other help her at home. She is safe to discharge home with assist. Outpatient PT is already scheduled. Frequency of Treatment Frequency Of Treatment Discharge Precautions Shoulder Precautions Sling,PROM,Internal Rotation to Body,No External Rotation, No Abduction,Forward Flexion to 90 degrees,Pendulums Recommendations To Nursing Amount of Assist Needed Standby Assistance Discharge Recommendations PT Discharge Recommendations Home with Assistance, Outpatient PT Transportation Needs at Discharge Private Vehicle
[2021-02-17] MEDS: OXYCODONE IR 10 MG TABLET PO (10:23)
--- NOTE | 2021-02-17 11:47 | CM.DPC ---
DCP/Brief Assessment: Reviewed chart. Patient is a 71yr old female admitted to [facility] right [facility]SA performed on 02-09-21. Spoke with RN and there are no anticipated d/c planning needs. Patient left [facility] prior to CM team's visit. P: Home JESSY Arce Discharge Planning/Care Management Advanced directive, confirm from FAMILY Start: 02/16/21 16:55 Freq: Q24H Status: Active Protocol: Document 02/16/21 23:00 CM (Rec: 02/16/21 23:22 CM [id number]) Advance Directive, confirm on record Time 23:22 Person contacted pt-did not bring with her. Copy received No CM Discharge Assessment Start: 02/17/21 11:44 Freq: Status: Active Protocol: Document 02/17/21 11:44 KJS (Rec: 02/17/21 11:47 KJS [id number]) Discharge Planning Assessment Assigned Electrician Front JESSY Arce Contact Information None listed Advance Directives? Yes Advance Directives on File No History Provided By Medical Record Has Patient been admitted in last 30 No days? Prior Living Arrangements House Household Members significant other Type of transporation used prior to Drives own vehicle admit Independent with ADL's Yes Is patient alert and oriented? Yes Caregiver for Another No Barriers to Discharge No Discharge Plan Home Transportation Arrangement Family to provide transport. Referrals Initiated None needed Review Status In Process Next Review Type Continued Stay Review Pre-Anesthesia Assessment Start: 02/09/21 09:06 Freq: Status: Active Protocol: Document 02/09/21 09:06 CAB (Rec: 02/09/21 10:32 CAB [id number]) Pre-Anesthesia Assessment Patient Information Reviewed Via Phone Assessment Assessment Completed With Patient H&P Completed Within 30 Days Yes Diagnostic Results BMP/CMP,CBC,EKG Comment COVID screen @ [facility] 02/14/21 Primary Care Provider Veronika Cobian Seen Specialist in Last 12 Months Yes Specialist Seen Project Builder,Orthopedist, Urologist Primary Language American Language Interpreter Required No Height 160.02 cm Weight 90.718 kg Body Mass Index (BMI) 35.4 Hearing Ability Normal Visual Assist Glasses Dentition Type Teeth, Natural Present,Teeth, Missing Barriers to Learning None Other Aids No Hx Anesthesia Reactions No: Light weight w/ anesthesia medications Hx Family Anesthesia Reaction No Hx Malignant Hyperthermia No Hx Blood Transfusions No Hx Blood Transfusion Reaction No Anesthesia Review Requested No Phlebotomy Services Representative No alcohol intake current alcohol intake frequency 0-2 drinks per day Smoking Status Current every day smoker Tobacco type cigarettes how long ago did patient quit smoking 42 year+ smoking history Substance Use Type does not use Pain Present Pain Reported Musculoskeletal Symptoms Back Pain,Joint Pain,Limited Range of Motion History of Falling (Recent or History of No ) Patient is completely paralyzed or No completely immobile Mental Status Oriented to own ability Is patient on oxygen? No Does patient have RALPH/SOB No Hx Sleep Apnea Yes CPAP/BIPAP use prescribed and used routinely Comment Current every day smoker Currently Taking a Beta [place] Yes: Atenolol Hx Chest Pain No Hx SOB No Hx Syncope or Dizziness No Anti-Coagulant Therapy No Has a Project Builder Yes: Dr. Benavidez - last visit Cardiac Testing No Hx Pacemaker/ICD No Pacemaker Rep Required? No Comment Cardiac records scanned Diet Type At Home Regular dysphagia No Urinary Catheter Present No Hx Urinary Self Catheterization No Diabetes No: Pre-diabetic by A1c labs HgbA1C 6.1 Date 02/02/21 Patient No Lactating No Hx Drug Resistant Organism No Presence of External or Internal Medical Yes: Cardiac stent, right hip, Devices lumbar, toe, eye lens Have you had any close contact with No someone diagnosed with COVID-19? Marital Status / Lives With significant other Prior Living Arrangements House Support System Significant Other Does the Patient Have Assistance After Yes Surgery Patient Discharge Plan Description Return Home Comment Pt advised overnight length of stay per surgeon Feels Safe in Current Environment Yes Been Physically Hurt or Threatened By a No Person in Current Environment Do you have thoughts of harming yourself None or others? Are you currently considering suicide? No Do you have a plan to hurt yourself or No Plan others? Do You Have Any Spiritual Beliefs That No May Affect Your HC Choices? Do You Have Any Cultural Practices That No May Affect Your HC Choices? Comment Epis Who Can We Speak to About Patient's Care Family, friends Identifying Code for Release of Patient Declines to issue Information Health Care Proxy/Next of Kin [place] (S.O.) Health Care Proxy Emergency Contact Name Bud (son) Emergency Contact Advance Directives? Yes: Working on Power of Smokehouse Worker No PAC Instructions Bring CPAP/BIPAP,Durable medical equipment,Medications to take/avoid,Nasal antibiotic ,No ETOH/petroleum product on skin DOS,NPO,Post-op transportation,Pre-surgical wash,Sensory aids,Sturdy shoes /comfortable clothes,Do not bring valuables and remove jewelry
--- NOTE | 2021-02-17 13:01 | PC.NURSE ---
Pt received A&O x3, VSS, afebrile. LS CTA,+BS x4. MD at bedside evaluating pt and clearing pt for discharge home today after PT/OT. Pt reports pain 3-4/10 this a.m. requesting oxycodone after therapy. Pain appears to be well controlled with oxycodone PRN. Tolerating meal with good po intake. arrives to transport patient home. She verbalizes understanding of activity limitations, site care, worsening symptoms or s/sx of infection as well as medications and follow up appointment in 2 weeks. Pt is escorted via w/ch by OFFICE NURSE PRACTITIONER to private vehicle with at approximately 1130.
== END 2021-02-17 11:30 | disposition home or self-care (01) ==
LOC: OR 10:29 → AC 10:29
PROVIDERS: Family Provider Internal Medicine; PCP Internal Medicine; Referring Provider Orthopaedic Surgery; Visit Provider Orthopaedic Surgery
PROC: 0RQJ0ZZ Repair Right Shoulder Joint, Open Approach (ICD-10-PCS; CPT 23472; principal; 2021-02-16 12:45)
DX: M19.011 Primary osteoarthritis, right shoulder (principal); M75.81 Other shoulder lesions, right shoulder; F17.210 Nicotine dependence, cigarettes, uncomplicated; I25.10 Atherosclerotic heart disease of native coronary artery without angina pectoris; E78.5 Hyperlipidemia, unspecified; G47.33 Obstructive sleep apnea (adult) (pediatric)
CPT/HCPCS: 23472; 36415; 64450; 73020; 85014; 85018; 97110; 97161; 99406; C1776; J0690; J1100; J2250; J2405; J2704; J3010

== ENCOUNTER → 2021-09-30 08:08 | Outpatient (CLI) | payer OTHER, SELFPAY ==
[2021-02-16 16:38] VITALS: BMI 35.4
--- NOTE | 2021-09-30 | DI.RAD.S_ITS ---
PROCEDURE: FL SHOULDER INJECTION MR/CT RT INDICATIONS: Strain of muscle(s) and tendon(s) of the rotator cuff. COMPARISON: [facility], CT, CT UE RT W CON, 09/30/2021, 8:19. TECHNIQUE: The indications, alternatives, benefits, risks, and complications of the procedure were explained to the patient. Written informed consent was obtained and placed in the chart. The shoulder was examined fluoroscopically and a site for needle placement chosen for entry into the glenohumeral joint from an anterior approach. The skin was prepped and draped in a sterile fashion, and 1% lidocaine infiltrated from skin down to joint capsule. A spinal needle was inserted into the glenohumeral joint, and a small amount of iodinated contrast media injected to confirm intra-articular placement of the needle tip. This was followed by approximately 12 mL of iodinated contrast. The needle was removed and a dressing was applied. The patient was given postprocedural instructions and sent to the CT suite for imaging. FINDINGS: A single fluoroscopic spot image demonstrates intra-articular location of injected iodinated contrast. IMPRESSION: Successful fluoroscopically guided administration of iodinated contrast solution into the shoulder joint for CT arthrogram. Dictated by: Lizeth Cortez MD, PhD on 09/30/2021 at 11:33 Approved by: Lizeth Cortez MD, PhD on 09/30/2021 at 11:34
--- NOTE | 2021-09-30 08:24 | DI.CT.S_ITS ---
PROCEDURE: CT UE RT W CON INDICATIONS: Strain of muscle(s) and tendon(s) of the rotator c TECHNIQUE: After the intra-articular administration of 12 mL of dilute non-ionic contrast, 1-1.5 mm thick sections acquired from the acromioclavicular joint to the inferior scapula, with coronal and sagittal reformatting. COMPARISON: [facility], MR, MR SHOULDER RT WO CON, 11/13/2020, 9:46. [facility], RF, FL SHOULDER INJECTION MR/CT RT, 09/30/2021, 8:27. [facility], CR, XR SHOULDER 2+ VIEWS RIGHT, 04/30/2021, 14:11. FINDINGS: Image quality: Excellent. Bones: Postsurgical changes are seen from humeral head resurfacing arthroplasty. The hardware appears to be intact without signs of loosening. Surrounding metallic streak artifact mildly compromises evaluation of adjacent structures. Degenerative spurring is seen in the glenoid rim. There appears to be a nonmetallic glenoid component to the arthroplasty in appropriate position. [id number] degenerative changes are seen at the acromioclavicular joint. Soft tissues: Contrast material is seen extending from the glenohumeral joint into the subcoracoid bursa through a full-thickness tear in the subscapularis tendon. Grade 3-4 fatty infiltration of the subscapularis muscle is noted. No significant articular sided tear of the supraspinatus or infraspinatus tendon is seen. Trace contrast material in the subacromial/subdeltoid bursa is most likely secondary to normal communication with the subcoracoid bursa. The remaining rotator cuff muscles are normal in bulk. The biceps long head tendon is not well seen. Mild centrilobular emphysema in the included right lung. IMPRESSION: 1. Postsurgical changes from resurfacing right shoulder arthroplasty. 2. Full-thickness tearing of the subscapularis tendon with tendon retraction. There is grade 3-4 fatty infiltration of the subscapularis muscle that is new when compared to the MRI from 11/13/2020. Glenohumeral contrast material communicates with the subcoracoid bursa through the full-thickness tear. 3. Supraspinatus and infraspinatus tendons appear to be intact. 4. Mild centrilobular emphysema. Dictated by: Hoang Cole M.D. on 09/30/2021 at 9:24 Approved by: Hoang Cole M.D. on 09/30/2021 at 9:43
== END ==
PROVIDERS: Family Provider Internal Medicine; PCP Internal Medicine; Referring Provider Orthopaedic Surgery; Visit Provider Orthopaedic Surgery
DX: S46.011A Strain of muscle(s) and tendon(s) of the rotator cuff of right shoulder, initial encounter (principal); J43.2 Centrilobular emphysema; Z96.611 Presence of right artificial shoulder joint
CPT/HCPCS: 23350; 73201; 77002

== ENCOUNTER → 2022-08-09 11:02 | Outpatient (CLI) | payer MEDICARE, SELFPAY ==
[2021-02-16 16:38] VITALS: BMI 35.4
--- NOTE | 2022-08-09 | DI.MG.S_ITS ---
BILATERAL DIGITAL SCREENING MAMMOGRAM 3D/2D WITH CAD: 08/09/2022 CLINICAL: Routine screening. Family history of breast cancer. Comparison is made to exams dated: 04/15/2020 mammogram, 11/22/2018 mammogram, and 04/03/2013 mammogram - [facility]. There are scattered areas of fibroglandular density in both breasts (category b / 25%-50% glandular tissue). Current study was also evaluated with a Computer Aided Detection (CAD) system. There is a biopsy clip in the left breast. No significant masses, calcifications, or other findings are seen in either breast. There has been no significant interval change. IMPRESSION: NEGATIVE There is no mammographic evidence of malignancy. A 1 year screening mammogram is recommended. Based on the Tyrer Cuzick model (a risk assessment model) the patient's lifetime risk is 10.4% and her 10 year risk is 7.2%. According to the ACR, ACS, and NCCN guidelines, an annual breast MRI exam along with mammogram is recommended if the patient's lifetime risk is 20% or greater. This exam was interpreted at Station ID: [id number]. NOTE: For mammograms, a report in lay terms will be sent to the patient. Approximately 15% of breast malignancies will not be visualized mammographically. In the management of a palpable breast mass, a negative mammogram must not discourage biopsy of a clinically suspicious lesion. Electronically Signed By: Goran curran/miri:08/09/2022 12:50:57 letter sent: Normal Exam ACR BI-RADS Category 1: Negative [id number]
== END ==
PROVIDERS: Family Provider Internal Medicine; PCP Internal Medicine; Referring Provider Internal Medicine; Visit Provider Internal Medicine
DX: Z12.31 Encounter for screening mammogram for malignant neoplasm of breast (principal); Z80.3 Family history of malignant neoplasm of breast
CPT/HCPCS: 77063; 77067